=== PATIENT | male | born 1960 | race African-American/Black ===

== ENCOUNTER 2021-07-07 03:49 | Observation (INO) | payer OTHER ==
[2021-07-07] MEDS ORDERED: Ondansetron PF 4 MG/2 ML Vial ONE (04:07)
[2021-07-07 04:57] LABS: ALT (SGPT) 24 U/L (8-55); AST (SGOT) 23 U/L (5-34); Albumin 4.2 g/dL (3.5-5.0); Alkaline Phosphatase 104 U/L (40-110); Anion Gap 14 mmol/L (10-20); BUN (Urea Nitrogen) 13 mg/dL (8.4-25.7); Bilirubin, Total 0.9 mg/dL (0.2-1.2); Calc. Creatinine Clearance 0 mL/min (70-130); Calcium 8.9 mg/dL (7.8-10.44); Carbon Dioxide 23 mmol/L (22-29); Chloride 106 mmol/L (98-107); Globulin 3.1 g/dL (2.4-3.5); Glucose 124 mg/dL (70-105); Hemoglobin 14.2 g/dL (13.5-17.5); Mean Corpuscular HGB CONC 33.3 g/dL (32.0-36.0); Mean Corpuscular Hemoglobin 28.9 pg (27.0-33.0); Mean Corpuscular Volume 86.8 fl (81.2-95.1); Platelet Count 234 10x3/uL (150-450); Potassium 3.3 mmol/L (3.5-5.1); Protein, Total 7.3 g/dL (6.0-8.3); RBC Distribution Width 13.9 % (11.5-14.5); Red Blood Cell (RBC) Count 4.92 10x6/uL (4.32-5.72); Sodium 140 mmol/L (136-145)
[2021-07-07 05:17] LABS: CKMB 1.7 ng/mL (0-6.6)
[2021-07-07 05:27] LABS: MDiff Complete? YES
[2021-07-07 05:29] LABS: Lymphocytes 25 % (21-51); Monocytes 13 % (0-10); Neutrophil 62 % (42-75)
[2021-07-07 05:30] LABS: Platelet Morphology Comment Appears Adequate; RBC Morphology Normal
[2021-07-07 05:32] LABS: SARS-CoV-2 NAA Rapid Test Not Detected (NotDetected)
[2021-07-07] MEDS ORDERED: cefTRIAXone\\ROCEPHIN 1 GM VIAL ONE (05:34)
[2021-07-07] MEDS ORDERED: Azithromycin 500 MG VIAL ONE (05:34)
[2021-07-07] MEDS ORDERED: hydrALAZINE 20 MG/ML VIAL SLOW IVP PRN (06:29)
[2021-07-07] MEDS ORDERED: Furosemide 40 MG/4 ML VIAL SLOW IVP SCH ×2 (06:30→14:00)
[2021-07-07] MEDS ORDERED: cefTRIAXone\\ROCEPHIN 1 GM in Sodium Chloride 0.9% 100 ML IVPB SCH (06:45)
[2021-07-07 07:01] VITALS: BMI 33.5
[2021-07-07 07:05] LABS: Magnesium 1.9 mg/dL (1.6-2.6); Uric Acid 6.4 mg/dL (3.5-7.2)
[2021-07-07 07:08] LABS: Cardiac Risk 6.7 (Less than 4.5); Troponin I 0.018 ng/mL (< 0.028)
[2021-07-07] MEDS: cloNIDine 0.1 MG TAB PO SCH ×2 (08:36→21:23)
[2021-07-07] MEDS: hydrALAZINE 25 MG TAB PO SCH ×3 (08:36→21:26)
[2021-07-07] MEDS: Terazosin HCl 1 MG CAP PO SCH (08:37)
[2021-07-07] MEDS: Apixaban 5 MG TAB PO SCH ×2 (08:37→21:26)
[2021-07-07] MEDS: Aspirin 81 mg Enteric Coated Tablet PO SCH (08:37)
[2021-07-07] MEDS: Lisinopril 20 MG TAB PO SCH (08:37)
[2021-07-07] MEDS: Ubidecarenone 50 MG CAP PO SCH (08:37)
[2021-07-07] MEDS: Potassium Chloride 20 MEQ TAB PO SCH ×3 (08:37→16:30)
[2021-07-07] MEDS: Diltiazem HCl CD 300 mg Capsule PO SCH (08:39)
[2021-07-07] MEDS: Carvedilol 25 MG TAB PO SCH ×2 (08:39→16:30)
[2021-07-07] MEDS: Azelastine 137 MCG/Spray 30 ML NS SCH (08:40)
[2021-07-07 09:58] LABS: Legionella Urinary Ag Negative (Negative); Strep pneumo Urine Ag NEGATIVE (NEGATIVE)
[2021-07-07 11:46] LABS: Troponin I 0.022 ng/mL (< 0.028)
[2021-07-07] MEDS ORDERED: Simvastatin 10 MG TAB PO SCH (21:00)
[2021-07-08 05:43] LABS: #Eosinphils 0.2 10x3/uL (0.0-0.5); #Monocytes 0.5 10x3/uL (0.0-1.1); #Neutrophils 1.3 10x3/uL (1.5-8.4); %Basophils 0.6 % (0.0-2.0); %Eosinophils 5.7 % (0.0-6.0); %Lymphocytes 35.6 % (18.0-47.0); %Monocytes 16.8 % (0.0-10.0)
[2021-07-08 05:44] LABS: Hemoglobin 13.2 g/dL (13.5-17.5); Mean Corpuscular HGB CONC 33.1 g/dL (32.0-36.0); Mean Corpuscular Volume 87.7 fl (81.2-95.1); Mean Platelet Volume 9.9 fl (7.4-10.4); Platelet Count 202 10x3/uL (150-450); RBC Distribution Width 14.2 % (11.5-14.5); Red Blood Cell (RBC) Count 4.55 10x6/uL (4.32-5.72); White Blood Cell (WBC) Count 3.2 10x3/uL (3.5-10.5)
[2021-07-08 05:59] LABS: Anion Gap 12 mmol/L (10-20); BUN (Urea Nitrogen) 14 mg/dL (8.4-25.7); Calc. Creatinine Clearance 95 mL/min (70-130); Calcium 8.6 mg/dL (7.8-10.44); Carbon Dioxide 24 mmol/L (22-29); Chloride 107 mmol/L (98-107); Glucose 104 mg/dL (70-105); Potassium 3.4 mmol/L (3.5-5.1); Sodium 140 mmol/L (136-145)
[2021-07-08] MEDS ORDERED: cefTRIAXone\\ROCEPHIN 2 GM in Sodium Chloride 0.9% 100 ML IVPB SCH (06:00)
[2021-07-08 06:28] LABS: Eosinophils 9 % (0-10); Lymphocytes 33 % (21-51); Monocytes 14 % (0-10); Reactive Lymphocytes 5 % (0-10)
[2021-07-08 06:29] LABS: Platelet Morphology Comment Appears Adequate; RBC Morphology Normal
[2021-07-08] MEDS ORDERED: Azithromycin 500 MG in Sodium Chloride 0.9% 250 ML 250 ML IVPB SCH (06:30)
[2021-07-08] MEDS: Carvedilol 25 MG TAB PO SCH (08:13)
[2021-07-08] MEDS: hydrALAZINE 25 MG TAB PO SCH (08:13)
[2021-07-08] MEDS: Apixaban 5 MG TAB PO SCH (08:13)
[2021-07-08] MEDS: Ubidecarenone 50 MG CAP PO SCH (08:13)
[2021-07-08] MEDS: cloNIDine 0.1 MG TAB PO SCH (08:13)
[2021-07-08] MEDS: Lisinopril 20 MG TAB PO SCH (08:13)
[2021-07-08] MEDS: Aspirin 81 mg Enteric Coated Tablet PO SCH (08:14)
[2021-07-08] MEDS: Azelastine 137 MCG/Spray 30 ML NS SCH (08:14)
[2021-07-08] MEDS: Terazosin HCl 1 MG CAP PO SCH (08:18)
[2021-07-08] MEDS ORDERED: Furosemide 40 MG/4 ML VIAL SLOW IVP SCH (09:00)
[2021-07-08] MEDS: Diltiazem HCl CD 300 mg Capsule PO SCH (09:16)
[2021-07-08 12:25] VITALS: BP 131/80; TEMP 97.6
== END 2021-07-08 13:47 | disposition home or self-care (01) ==
LOC: CSHERS 03:49 → INTOOBSV 06:27 → CSHTELE 06:27
PROVIDERS: ADMIT Family Medicine; ATTEND Internal Medicine
DX: J18.9 Pneumonia, unspecified organism (principal); I13.0 Hypertensive heart and chronic kidney disease with heart failure and stage 1 through stage 4 chronic kidney disease, or unspecified chronic kidney disease; I50.33 Acute on chronic diastolic (congestive) heart failure; N18.2 Chronic kidney disease, stage 2 (mild); I48.0 Paroxysmal atrial fibrillation; E87.6 Hypokalemia; E78.5 Hyperlipidemia, unspecified; K21.9 Gastro-esophageal reflux disease without esophagitis; G47.33 Obstructive sleep apnea (adult) (pediatric); Z79.899 Other long term (current) drug therapy; E66.9 Obesity, unspecified; Z68.32 Body mass index [BMI] 32.0-32.9, adult; Z79.01 Long term (current) use of anticoagulants; Z79.82 Long term (current) use of aspirin; Z20.822 Contact with and (suspected) exposure to COVID-19
CPT/HCPCS: 36415; 71045; 80048; 80053; 80061; 82553; 83605; 83735; 83880; 84443; 84484; 84550; 85025; 87040; 87070; 87205; 87449; 87633; 87899; 93005; 93306; 94760; 96365; 96368; 96375; 96376; 97139; G0378; J0456; J0696; J1940; J2405; J3490; J7050; U0002

== ENCOUNTER 2021-09-24 16:14 | Emergency (ER) | payer OTHER ==
[2021-09-24] MEDS ORDERED: methylPREDNISolone Sod Succ/PF 125 MG/2 ML VIAL ONE (17:04)
[2021-09-24 17:27] LABS: #Eosinphils 0.1 10x3/uL (0.0-0.5); #Monocytes 0.7 10x3/uL (0.0-1.1); #Neutrophils 3.8 10x3/uL (1.5-8.4); %Basophils 0.5 % (0.0-2.0); %Eosinophils 2.2 % (0.0-6.0); %Lymphocytes 21.2 % (18.0-47.0); %Monocytes 11.5 % (0.0-10.0); %Neutrophils 64.4 % (40.0-75.0); Hemoglobin 13.9 g/dL (13.5-17.5); Mean Corpuscular HGB CONC 33.3 g/dL (32.0-36.0); Mean Corpuscular Hemoglobin 29.1 pg (27.0-33.0); Mean Corpuscular Volume 87.2 fl (81.2-95.1); Mean Platelet Volume 9.9 fl (7.4-10.4); Platelet Count 248 10x3/uL (150-450); RBC Distribution Width 13.8 % (11.5-14.5); Red Blood Cell (RBC) Count 4.78 10x6/uL (4.32-5.72); White Blood Cell (WBC) Count 5.8 10x3/uL (3.5-10.5)
[2021-09-24 17:39] LABS: ALT (SGPT) 19 U/L (8-55); AST (SGOT) 18 U/L (5-34); Alkaline Phosphatase 92 U/L (40-110); Anion Gap 12 mmol/L (10-20); BUN (Urea Nitrogen) 12 mg/dL (8.4-25.7); Calc. Creatinine Clearance 0 mL/min (70-130); Calcium 8.8 mg/dL (7.8-10.44); Carbon Dioxide 28 mmol/L (22-29); Chloride 105 mmol/L (98-107); Globulin 3.1 g/dL (2.4-3.5); Glucose 96 mg/dL (70-105); Magnesium 1.9 mg/dL (1.6-2.6); Potassium 3.5 mmol/L (3.5-5.1); Protein, Total 7.1 g/dL (6.0-8.3); Sodium 141 mmol/L (136-145)
[2021-09-24] MEDS ORDERED: Ondansetron PF 4 MG/2 ML Vial ONE (18:10)
[2021-09-24] MEDS ORDERED: Doxycycline 100 MG CAP PO SCH (18:30)
== END 2021-09-24 18:35 | disposition home or self-care (01) ==
LOC: CSHERS 16:14
DX: J18.9 Pneumonia, unspecified organism (principal); I48.91 Unspecified atrial fibrillation; E78.5 Hyperlipidemia, unspecified; I10 Essential (primary) hypertension; E66.9 Obesity, unspecified
CPT/HCPCS: 71045; 80053; 83735; 83880; 84484; 85025; 87804; 93005; 93010; 96374; 96375; J2405; J2930; J7620

== ENCOUNTER 2021-12-11 06:42 | Observation (INO) | payer OTHER ==
[2021-12-11 07:24] LABS: #Eosinphils 0.3 10x3/uL (0.0-0.5); #Monocytes 0.6 10x3/uL (0.0-1.1); %Basophils 0.4 % (0.0-2.0); %Eosinophils 5.3 % (0.0-6.0); %Lymphocytes 29.3 % (18.0-47.0); %Monocytes 10.9 % (0.0-10.0); %Neutrophils 53.6 % (40.0-75.0); Hemoglobin 12.7 g/dL (13.5-17.5); Mean Corpuscular HGB CONC 34.3 g/dL (32.0-36.0); Mean Corpuscular Hemoglobin 28.9 pg (27.0-33.0); Mean Corpuscular Volume 84.3 fl (81.2-95.1); Platelet Count 229 10x3/uL (150-450); RBC Distribution Width 13.8 % (11.5-14.5); Red Blood Cell (RBC) Count 4.39 10x6/uL (4.32-5.72); White Blood Cell (WBC) Count 5.5 10x3/uL (3.5-10.5)
[2021-12-11 07:38] LABS: ALT (SGPT) 40 U/L (8-55); AST (SGOT) 24 U/L (5-34); Albumin 3.3 g/dL (3.5-5.0); Alkaline Phosphatase 71 U/L (40-110); Anion Gap 14 mmol/L (10-20); BUN (Urea Nitrogen) 21 mg/dL (8.4-25.7); Bilirubin, Total 0.6 mg/dL (0.2-1.2); Calc. Creatinine Clearance 0 mL/min (70-130); Calcium 8.8 mg/dL (7.8-10.44); Carbon Dioxide 25 mmol/L (22-29); Chloride 106 mmol/L (98-107); Globulin 2.9 g/dL (2.4-3.5); Glucose 90 mg/dL (70-105); Potassium 3.7 mmol/L (3.5-5.1); Protein, Total 6.2 g/dL (6.0-8.3); Sodium 141 mmol/L (136-145)
[2021-12-11 08:00] LABS: INR-International Normal Ratio 1.1; PTT 28.8 sec (22.0-33.0); Prothrombin Time 12.1 sec (9.5-12.1)
[2021-12-11] MEDS ORDERED: Aspirin Chewable 81 MG TAB ONE (08:15)
[2021-12-11] MEDS ORDERED: Enoxaparin Sodium 100 MG/ML SYRINGE ONE (08:16)
[2021-12-11] MEDS ORDERED: Nitroglycerin 2% Ointment 1 INCH/1 GM Packet ONE (08:17)
[2021-12-11] MEDS ORDERED: Furosemide 40 MG/4 ML VIAL ONE (08:17)
[2021-12-11 08:25] LABS: CKMB 1.8 ng/mL (0-6.6)
[2021-12-11 09:38] LABS: SARS-CoV-2 NAA Rapid Test Not Detected (NotDetected)
[2021-12-11 11:07] LABS: Troponin I 0.982 ng/mL (< 0.028)
[2021-12-11] MEDS ORDERED: Ondansetron ODT 4 MG TAB PO PRN (12:15)
[2021-12-11] MEDS ORDERED: Acetaminophen 325 MG TAB PO PRN (12:15)
[2021-12-11] MEDS ORDERED: Nitroglycerin 0.4 MG TAB (25 Tab Bottle) SL PRN (12:16)
[2021-12-11 12:38] LABS: Magnesium 1.8 mg/dL (1.6-2.6)
[2021-12-11] MEDS ORDERED: Ipratropium Bromide 0.06% Nasal Inhaler 15ml EA NARE SCH (13:00)
[2021-12-11] MEDS ORDERED: Iopamidol 370 76% 100 ML VIAL ONE (14:39)
[2021-12-11] MEDS: hydrALAZINE 25 MG TAB PO SCH ×2 (14:59→19:55)
[2021-12-11] MEDS: Nitroglycerin 2% Ointment 1 INCH/1 GM Packet TOP SCH ×2 (14:59→21:21)
[2021-12-11] MEDS: cloNIDine 0.1 MG TAB PO SCH ×2 (15:00→19:56)
[2021-12-11] MEDS: Carvedilol 25 MG TAB PO SCH (17:10)
[2021-12-11] MEDS ORDERED: hydrALAZINE 20 MG/ML VIAL SLOW IVP PRN (17:14)
[2021-12-11] MEDS ORDERED: Lisinopril 20 MG TAB PO SCH (17:15)
[2021-12-11] MEDS: hydrALAZINE 20 MG/ML VIAL SLOW IVP PRN ×2 (18:29→23:07)
[2021-12-11] MEDS: Colchicine 0.6 MG TAB PO SCH (19:57)
[2021-12-11] MEDS: Apixaban 5 MG TAB PO SCH (19:58)
[2021-12-11] MEDS ORDERED: Furosemide 40 MG/4 ML VIAL SLOW IVP SCH (20:00)
[2021-12-11] MEDS ORDERED: Enoxaparin Sodium 80 MG/0.8 ML SYRINGE SC SCH (21:00)
[2021-12-11] MEDS ORDERED: Atorvastatin Calcium 10 MG TAB PO SCH (21:00)
[2021-12-12 04:20] VITALS: BMI 35.6
[2021-12-12 04:35] LABS: #Eosinphils 0.2 10x3/uL (0.0-0.5); #Monocytes 0.5 10x3/uL (0.0-1.1); #Neutrophils 2.4 10x3/uL (1.5-8.4); %Basophils 0.6 % (0.0-2.0); %Eosinophils 3.2 % (0.0-6.0); %Lymphocytes 33.3 % (18.0-47.0); %Monocytes 11.2 % (0.0-10.0); %Neutrophils 51.3 % (40.0-75.0); Hemoglobin 12.5 g/dL (13.5-17.5); Mean Corpuscular HGB CONC 33.4 g/dL (32.0-36.0); Mean Corpuscular Hemoglobin 28.7 pg (27.0-33.0); Mean Corpuscular Volume 85.8 fl (81.2-95.1); Mean Platelet Volume 10.4 fl (7.4-10.4); Platelet Count 269 10x3/uL (150-450); RBC Distribution Width 13.8 % (11.5-14.5); Red Blood Cell (RBC) Count 4.36 10x6/uL (4.32-5.72); White Blood Cell (WBC) Count 4.8 10x3/uL (3.5-10.5)
[2021-12-12 04:53] LABS: Anion Gap 16 mmol/L (10-20); BUN (Urea Nitrogen) 20 mg/dL (8.4-25.7); Calc. Creatinine Clearance 81 mL/min (70-130); Calcium 8.6 mg/dL (7.8-10.44); Carbon Dioxide 28 mmol/L (22-29); Chloride 101 mmol/L (98-107); Glucose 65 mg/dL (70-105); Magnesium 1.8 mg/dL (1.6-2.6); Potassium 3.5 mmol/L (3.5-5.1); Sodium 141 mmol/L (136-145)
[2021-12-12] MEDS: Furosemide 40 MG/4 ML VIAL SLOW IVP SCH ×2 (05:00→14:25)
[2021-12-12] MEDS: Nitroglycerin 2% Ointment 1 INCH/1 GM Packet TOP SCH ×2 (05:00→14:24)
[2021-12-12] MEDS ORDERED: Potassium Chloride 10 MEQ TAB PO SCH (08:00)
[2021-12-12] MEDS: Apixaban 5 MG TAB PO SCH (08:34)
[2021-12-12] MEDS: Carvedilol 25 MG TAB PO SCH ×2 (08:36→16:00)
[2021-12-12] MEDS: cloNIDine 0.1 MG TAB PO SCH ×2 (08:36→15:57)
[2021-12-12] MEDS: Colchicine 0.6 MG TAB PO SCH (08:37)
[2021-12-12] MEDS: hydrALAZINE 25 MG TAB PO SCH ×2 (08:38→15:58)
[2021-12-12] MEDS ORDERED: Lisinopril 20 MG TAB PO SCH (09:00)
[2021-12-12] MEDS ORDERED: Aspirin 81 mg Enteric Coated Tablet PO SCH (09:00)
[2021-12-12] MEDS ORDERED: Amiodarone 200 MG TAB PO SCH (09:00)
[2021-12-12] MEDS ORDERED: Losartan 25 MG TAB PO SCH (09:00)
[2021-12-12] MEDS ORDERED: Loratadine 10 MG TAB PO SCH (09:00)
[2021-12-12 16:40] VITALS: BP 135/92; TEMP 97.4
== END 2021-12-12 20:00 | disposition home or self-care (01) ==
LOC: CSHERS 06:42 → INTOOBSV 09:54 → CSHTELE 09:54
PROVIDERS: ADMIT Internal Medicine; ATTEND Internal Medicine
DX: I13.0 Hypertensive heart and chronic kidney disease with heart failure and stage 1 through stage 4 chronic kidney disease, or unspecified chronic kidney disease (principal); I48.4 Atypical atrial flutter; I48.19 Other persistent atrial fibrillation; I50.33 Acute on chronic diastolic (congestive) heart failure; N18.2 Chronic kidney disease, stage 2 (mild); R77.8 Other specified abnormalities of plasma proteins; K21.9 Gastro-esophageal reflux disease without esophagitis; Z79.899 Other long term (current) drug therapy; Z79.01 Long term (current) use of anticoagulants; Z79.82 Long term (current) use of aspirin; E78.5 Hyperlipidemia, unspecified; G47.33 Obstructive sleep apnea (adult) (pediatric); E66.9 Obesity, unspecified; J90 Pleural effusion, not elsewhere classified; Z20.822 Contact with and (suspected) exposure to COVID-19
CPT/HCPCS: 36415; 71045; 71275; 80048; 80053; 82550; 82553; 83605; 83735; 83880; 84443; 84484; 85025; 85610; 85730; 93005; 93306; 94760; 96372; 96374; 96375; 96376; G0378; J0360; J1650; J1940; Q0162; Q9967; U0002

== ENCOUNTER 2021-12-16 00:43 | Observation (INO) | payer OTHER ==
[2021-12-16 01:30] LABS: #Eosinphils 0.1 10x3/uL (0.0-0.5); #Monocytes 0.5 10x3/uL (0.0-1.1); %Basophils 0.9 % (0.0-2.0); %Eosinophils 2.9 % (0.0-6.0); %Lymphocytes 40.8 % (18.0-47.0); %Neutrophils 44.2 % (40.0-75.0); Hemoglobin 13.7 g/dL (13.5-17.5); Mean Corpuscular HGB CONC 34.3 g/dL (32.0-36.0); Mean Corpuscular Hemoglobin 29.1 pg (27.0-33.0); Mean Corpuscular Volume 85.1 fl (81.2-95.1); Mean Platelet Volume 9.9 fl (7.4-10.4); Platelet Count 319 10x3/uL (150-450); RBC Distribution Width 14.1 % (11.5-14.5); White Blood Cell (WBC) Count 4.4 10x3/uL (3.5-10.5)
[2021-12-16] MEDS ORDERED: Aspirin Chewable 81 MG TAB ONE (01:32)
[2021-12-16 01:45] LABS: ALT (SGPT) 38 U/L (8-55); AST (SGOT) 23 U/L (5-34); Albumin 3.8 g/dL (3.5-5.0); Alkaline Phosphatase 76 U/L (40-110); Anion Gap 15 mmol/L (10-20); BUN (Urea Nitrogen) 17 mg/dL (8.4-25.7); Bilirubin, Total 0.4 mg/dL (0.2-1.2); Calc. Creatinine Clearance 0 mL/min (70-130); Carbon Dioxide 30 mmol/L (22-29); Chloride 101 mmol/L (98-107); Globulin 2.7 g/dL (2.4-3.5); Glucose 109 mg/dL (70-105); Potassium 3.5 mmol/L (3.5-5.1); Protein, Total 6.5 g/dL (6.0-8.3); Sodium 142 mmol/L (136-145)
[2021-12-16 02:05] LABS: CKMB 1.1 ng/mL (0-6.6)
[2021-12-16] MEDS ORDERED: Furosemide 40 MG/4 ML VIAL ONE (02:18)
[2021-12-16 02:54] LABS: INR-International Normal Ratio 1.2; PTT 28.9 sec (22.0-33.0); Prothrombin Time 12.6 sec (9.5-12.1)
[2021-12-16 03:31] VITALS: BMI 32.1
[2021-12-16] MEDS ORDERED: Potassium Chloride 20 MEQ TAB PO SCH (03:45)
[2021-12-16] MEDS ORDERED: ALPRAZolam 0.25 MG TAB PO PRN (03:51)
[2021-12-16 05:09] LABS: Magnesium 1.9 mg/dL (1.6-2.6)
[2021-12-16] MEDS: Furosemide 40 MG/4 ML VIAL SLOW IVP SCH ×2 (06:07→15:41)
[2021-12-16] MEDS ORDERED: Magnesium 2 GM/50 ML(in water) 2 GM in Premix Bag 1 BAG IVPB SCH (07:45)
[2021-12-16] MEDS: hydrALAZINE 25 MG TAB PO SCH ×3 (08:25→21:27)
[2021-12-16] MEDS: Colchicine 0.6 MG TAB PO SCH ×2 (08:26→21:27)
[2021-12-16] MEDS: Ubidecarenone 50 MG CAP PO SCH (08:26)
[2021-12-16] MEDS: cloNIDine 0.1 MG TAB PO SCH ×2 (08:26→21:26)
[2021-12-16] MEDS: Potassium Chloride 10 MEQ TAB PO SCH (08:26)
[2021-12-16] MEDS: Aspirin 81 mg Enteric Coated Tablet PO SCH (08:26)
[2021-12-16] MEDS: Apixaban 5 MG TAB PO SCH ×2 (08:27→21:27)
[2021-12-16] MEDS: Amiodarone 200 MG TAB PO SCH (08:27)
[2021-12-16] MEDS: Fluticasone Propionate Nasal Spray 16 gm Bottle NASAL SCH (08:28)
[2021-12-16] MEDS: Carvedilol 25 MG TAB PO SCH ×2 (08:28→17:32)
[2021-12-16] MEDS ORDERED: Losartan 25 MG TAB PO SCH (09:00)
[2021-12-16] MEDS: Azelastine 137 MCG/Spray 30 ML NS SCH (11:14)
[2021-12-16] MEDS ORDERED: Acetaminophen 325 MG TAB PO PRN (15:48)
[2021-12-16] MEDS ORDERED: Atorvastatin Calcium 10 MG TAB PO SCH (21:00)
[2021-12-17 04:58] LABS: #Eosinphils 0.1 10x3/uL (0.0-0.5); #Monocytes 0.5 10x3/uL (0.0-1.1); #Neutrophils 2.1 10x3/uL (1.5-8.4); %Basophils 0.7 % (0.0-2.0); %Eosinophils 3.2 % (0.0-6.0); %Lymphocytes 33.7 % (18.0-47.0); %Monocytes 11.5 % (0.0-10.0); %Neutrophils 50.7 % (40.0-75.0); Hemoglobin 13.4 g/dL (13.5-17.5); Mean Corpuscular HGB CONC 33.6 g/dL (32.0-36.0); Mean Corpuscular Hemoglobin 29.1 pg (27.0-33.0); Mean Corpuscular Volume 86.6 fl (81.2-95.1); Mean Platelet Volume 9.7 fl (7.4-10.4); Platelet Count 297 10x3/uL (150-450); RBC Distribution Width 14.2 % (11.5-14.5); Red Blood Cell (RBC) Count 4.61 10x6/uL (4.32-5.72); White Blood Cell (WBC) Count 4.1 10x3/uL (3.5-10.5)
[2021-12-17 05:12] LABS: Anion Gap 15 mmol/L (10-20); BUN (Urea Nitrogen) 15 mg/dL (8.4-25.7); Calc. Creatinine Clearance 69 mL/min (70-130); Calcium 9.2 mg/dL (7.8-10.44); Carbon Dioxide 27 mmol/L (22-29); Cardiac Risk 6.4 (Less than 4.5); Chloride 101 mmol/L (98-107); Cholesterol 206 mg/dl (< 200 Desired); Glucose 99 mg/dL (70-105); HDL Cholesterol 32 mg/dL (>60 Neg Risk); LDL Cholesterol, Calculated 150 mg/dL; Magnesium 2.1 mg/dL (1.6-2.6); Potassium 3.1 mmol/L (3.5-5.1); Sodium 140 mmol/L (136-145); Triglycerides 120 mg/dL (Less than 150)
[2021-12-17] MEDS: Furosemide 40 MG/4 ML VIAL SLOW IVP SCH ×2 (05:58→13:56)
[2021-12-17] MEDS: Ubidecarenone 50 MG CAP PO SCH (08:45)
[2021-12-17] MEDS: Potassium Chloride 10 MEQ TAB PO SCH (08:45)
[2021-12-17] MEDS: cloNIDine 0.1 MG TAB PO SCH (08:46)
[2021-12-17] MEDS: Aspirin 81 mg Enteric Coated Tablet PO SCH (08:46)
[2021-12-17] MEDS: Colchicine 0.6 MG TAB PO SCH (08:46)
[2021-12-17] MEDS: hydrALAZINE 25 MG TAB PO SCH ×2 (08:48→13:56)
[2021-12-17] MEDS: Apixaban 5 MG TAB PO SCH (08:48)
[2021-12-17] MEDS: Carvedilol 25 MG TAB PO SCH (08:48)
[2021-12-17] MEDS: Amiodarone 200 MG TAB PO SCH (08:48)
[2021-12-17] MEDS: Azelastine 137 MCG/Spray 30 ML NS SCH (09:00)
[2021-12-17] MEDS: Fluticasone Propionate Nasal Spray 16 gm Bottle NASAL SCH (09:00)
[2021-12-17] MEDS ORDERED: hydrALAZINE 20 MG/ML VIAL SLOW IVP SCH (11:30)
[2021-12-17 12:06] VITALS: BP 138/95; TEMP 97.7
[2021-12-17] MEDS ORDERED: Losartan 25 MG TAB PO SCH (21:00)
== END 2021-12-17 15:30 | disposition home or self-care (01) ==
LOC: CSHERS 00:43 → CSHTELE 03:21
PROVIDERS: ADMIT Family Medicine; ATTEND Family Medicine
DX: I13.0 Hypertensive heart and chronic kidney disease with heart failure and stage 1 through stage 4 chronic kidney disease, or unspecified chronic kidney disease (principal); I50.33 Acute on chronic diastolic (congestive) heart failure; N18.31 Chronic kidney disease, stage 3a; I16.0 Hypertensive urgency; E87.6 Hypokalemia; I48.91 Unspecified atrial fibrillation; I48.92 Unspecified atrial flutter; K21.9 Gastro-esophageal reflux disease without esophagitis; E78.5 Hyperlipidemia, unspecified; G47.33 Obstructive sleep apnea (adult) (pediatric); R77.8 Other specified abnormalities of plasma proteins; Z98.890 Other specified postprocedural states; Z79.01 Long term (current) use of anticoagulants; Z79.02 Long term (current) use of antithrombotics/antiplatelets; Z79.899 Other long term (current) drug therapy; Z88.8 Allergy status to other drugs, medicaments and biological substances
CPT/HCPCS: 36415; 71045; 80048; 80053; 80061; 82553; 83735; 83880; 84484; 84550; 85025; 85610; 85730; 93005; 94660; 94760; 96374; 96375; 96376; 97139; G0378; J1940; J3475

== ENCOUNTER 2021-12-20 06:10 | Emergency (ER) | payer OTHER ==
[2021-12-20] MEDS ORDERED: cloNIDine 0.1 MG TAB ONE (07:10)
[2021-12-20] MEDS ORDERED: Nitroglycerin 2% Ointment 1 INCH/1 GM Packet ONE (07:10)
[2021-12-20] MEDS ORDERED: Aspirin Chewable 81 MG TAB ONE (07:10)
[2021-12-20] MEDS ORDERED: Furosemide 40 MG/4 ML VIAL ONE (07:10)
[2021-12-20 07:12] LABS: #Basophils 0.1 10x3/uL (0.0-0.2); #Eosinphils 0.1 10x3/uL (0.0-0.5); #Monocytes 0.5 10x3/uL (0.0-1.1); #Neutrophils 1.5 10x3/uL (1.5-8.4); %Basophils 1.6 % (0.0-2.0); %Eosinophils 3.5 % (0.0-6.0); %Lymphocytes 40.8 % (18.0-47.0); %Monocytes 13.9 % (0.0-10.0); %Neutrophils 40.2 % (40.0-75.0); Hemoglobin 14.9 g/dL (13.5-17.5); Mean Corpuscular HGB CONC 34.3 g/dL (32.0-36.0); Mean Corpuscular Hemoglobin 28.8 pg (27.0-33.0); Mean Platelet Volume 9.8 fl (7.4-10.4); Platelet Count 336 10x3/uL (150-450); RBC Distribution Width 14.5 % (11.5-14.5); Red Blood Cell (RBC) Count 5.18 10x6/uL (4.32-5.72); White Blood Cell (WBC) Count 3.8 10x3/uL (3.5-10.5)
[2021-12-20 07:17] LABS: ALT (SGPT) 20 U/L (8-55); AST (SGOT) 13 U/L (5-34); Albumin 4.2 g/dL (3.5-5.0); Alkaline Phosphatase 82 U/L (40-110); Anion Gap 16 mmol/L (10-20); BUN (Urea Nitrogen) 17 mg/dL (8.4-25.7); Bilirubin, Total 0.9 mg/dL (0.2-1.2); Calc. Creatinine Clearance 0 mL/min (70-130); Calcium 9.5 mg/dL (7.8-10.44); Carbon Dioxide 27 mmol/L (22-29); Chloride 100 mmol/L (98-107); Globulin 3.1 g/dL (2.4-3.5); Glucose 108 mg/dL (70-105); Potassium 3.2 mmol/L (3.5-5.1); Protein, Total 7.3 g/dL (6.0-8.3); Sodium 140 mmol/L (136-145)
[2021-12-20 07:40] LABS: CKMB 1.1 ng/mL (0-6.6)
[2021-12-20 11:42] LABS: Troponin I 0.439 ng/mL (< 0.028)
== END 2021-12-20 12:28 | disposition home or self-care (01) ==
LOC: CSHERS 06:10
DX: R07.89 Other chest pain (principal); I48.91 Unspecified atrial fibrillation; E78.5 Hyperlipidemia, unspecified; I10 Essential (primary) hypertension; E66.9 Obesity, unspecified
CPT/HCPCS: 36415; 71045; 80053; 82553; 83880; 84484; 85025; 93005; 96374; J1940

== ENCOUNTER 2021-12-24 23:14 | Inpatient (IN) | payer OTHER ==
[2021-12-25] MEDS ORDERED: Sodium Chloride 0.9% 1,000 ML IV SCH (00:30)
[2021-12-25 00:43] VITALS: BMI 31.3
[2021-12-25] MEDS ORDERED: Potassium Chloride 20 MEQ TAB PO SCH ×2 (03:00→03:15)
[2021-12-25] MEDS ORDERED: Ipratropium Bromide 0.06% Nasal Inhaler 15ml EA NARE PRN (03:03)
[2021-12-25 04:20] LABS: Hemoglobin 14.6 g/dL (13.5-17.5); Mean Corpuscular HGB CONC 33.9 g/dL (32.0-36.0); Mean Corpuscular Hemoglobin 29.1 pg (27.0-33.0); Mean Corpuscular Volume 85.9 fl (81.2-95.1); Mean Platelet Volume 10.4 fl (7.4-10.4); Platelet Count 246 10x3/uL (150-450); RBC Distribution Width 14.3 % (11.5-14.5); Red Blood Cell (RBC) Count 5.02 10x6/uL (4.32-5.72); White Blood Cell (WBC) Count 3.4 10x3/uL (3.5-10.5)
[2021-12-25 04:49] LABS: Anion Gap 14 mmol/L (10-20); BUN (Urea Nitrogen) 14 mg/dL (8.4-25.7); Calc. Creatinine Clearance 71 mL/min (70-130); Calcium 9.2 mg/dL (7.8-10.44); Carbon Dioxide 29 mmol/L (22-29); Chloride 103 mmol/L (98-107); Glucose 90 mg/dL (70-105); Sodium 143 mmol/L (136-145)
[2021-12-25 04:53] LABS: Troponin I 0.337 ng/mL (< 0.028)
[2021-12-25 04:55] LABS: MDiff Complete? YES
[2021-12-25 04:59] LABS: Eosinophils 4 % (0-10); Lymphocytes 39 % (21-51); Monocytes 14 % (0-10); Neutrophil 41 % (42-75); Reactive Lymphocytes 1 % (0-10)
[2021-12-25 05:01] LABS: Platelet Morphology Comment Appears Adequate; RBC Morphology Normal
[2021-12-25] MEDS ORDERED: hydrALAZINE 20 MG/ML VIAL SLOW IVP PRN (07:04)
[2021-12-25] MEDS ORDERED: Magnesium 2 GM/50 ML(in water) 2 GM in Premix Bag 1 BAG IVPB SCH (07:15)
[2021-12-25 08:07] LABS: INR-International Normal Ratio 1.2; PTT 29.1 sec (22.0-33.0); Prothrombin Time 12.4 sec (9.5-12.1)
[2021-12-25] MEDS: Ubidecarenone 50 MG CAP PO SCH (08:20)
[2021-12-25] MEDS: hydrALAZINE 25 MG TAB PO SCH ×2 (08:20→16:04)
[2021-12-25] MEDS: Potassium Chloride 10 MEQ TAB PO SCH (08:20)
[2021-12-25] MEDS: cloNIDine 0.1 MG TAB PO SCH ×2 (08:21→20:17)
[2021-12-25] MEDS: Atorvastatin Calcium 10 MG TAB PO SCH (08:21)
[2021-12-25] MEDS: Colchicine 0.6 MG TAB PO SCH ×2 (08:21→20:16)
[2021-12-25] MEDS: ALPRAZolam 0.25 MG TAB PO SCH (08:22)
[2021-12-25] MEDS: Aspirin 81 mg Enteric Coated Tablet PO SCH (08:22)
[2021-12-25] MEDS: Furosemide 40 MG TAB PO SCH (08:22)
[2021-12-25] MEDS ORDERED: DILTIAZEM HCL 420 MG PO SCH (09:00)
[2021-12-25] MEDS ORDERED: Losartan 25 MG TAB PO SCH (09:00)
[2021-12-25] MEDS ORDERED: Apixaban 5 MG TAB PO SCH ×2 (09:00→21:45)
[2021-12-25] MEDS: Isosorbide Dinitrate 20 MG TAB PO SCH ×3 (09:05→20:15)
[2021-12-25] MEDS: Azelastine 137 MCG/Spray 30 ML NS SCH (09:07)
[2021-12-25] MEDS: Fluticasone Propionate Nasal Spray 16 gm Bottle NASAL SCH (09:07)
[2021-12-25 13:08] LABS: Hemoglobin A1c 5.8 % (4.0-6.0)
[2021-12-25] MEDS: Carvedilol 25 MG TAB PO SCH (16:05)
[2021-12-26] MEDS: hydrALAZINE 25 MG TAB PO SCH ×4 (00:21→21:07)
[2021-12-26 05:33] LABS: ALT (SGPT) 15 U/L (8-55); AST (SGOT) 12 U/L (5-34); Albumin 3.5 g/dL (3.5-5.0); Alkaline Phosphatase 70 U/L (40-110); Anion Gap 13 mmol/L (10-20); BUN (Urea Nitrogen) 16 mg/dL (8.4-25.7); Bilirubin, Direct 0.2 mg/dL (0.1-0.3); Bilirubin, Total 0.7 mg/dL (0.2-1.2); Calc. Creatinine Clearance 64 mL/min (70-130); Calcium 9.2 mg/dL (7.8-10.44); Carbon Dioxide 27 mmol/L (22-29); Cardiac Risk 5.8 (Less than 4.5); Chloride 103 mmol/L (98-107); Cholesterol 187 mg/dl (< 200 Desired); Glucose 110 mg/dL (70-105); HDL Cholesterol 32 mg/dL (>60 Neg Risk); LDL Cholesterol, Calculated 134 mg/dL; Magnesium 2.3 mg/dL (1.6-2.6); Potassium 3.2 mmol/L (3.5-5.1); Protein, Total 6.3 g/dL (6.0-8.3); Sodium 140 mmol/L (136-145); Triglycerides 106 mg/dL (Less than 150)
[2021-12-26 05:55] LABS: #Basophils 0.1 10x3/uL (0.0-0.2); #Eosinphils 0.1 10x3/uL (0.0-0.5); #Monocytes 0.5 10x3/uL (0.0-1.1); #Neutrophils 1.1 10x3/uL (1.5-8.4); %Basophils 1.4 % (0.0-2.0); %Eosinophils 3.5 % (0.0-6.0); %Lymphocytes 49.9 % (18.0-47.0); %Monocytes 14.2 % (0.0-10.0); %Neutrophils 30.7 % (40.0-75.0); Hemoglobin 13.6 g/dL (13.5-17.5); Mean Corpuscular HGB CONC 32.9 g/dL (32.0-36.0); Mean Corpuscular Hemoglobin 29.1 pg (27.0-33.0); Mean Corpuscular Volume 88.4 fl (81.2-95.1); Mean Platelet Volume 10.8 fl (7.4-10.4); Platelet Count 241 10x3/uL (150-450); RBC Distribution Width 14.4 % (11.5-14.5); Red Blood Cell (RBC) Count 4.67 10x6/uL (4.32-5.72); White Blood Cell (WBC) Count 3.5 10x3/uL (3.5-10.5)
[2021-12-26] MEDS: Ubidecarenone 50 MG CAP PO SCH (09:19)
[2021-12-26] MEDS: cloNIDine 0.1 MG TAB PO SCH ×2 (09:19→21:07)
[2021-12-26] MEDS: Aspirin 81 mg Enteric Coated Tablet PO SCH (09:19)
[2021-12-26] MEDS: Colchicine 0.6 MG TAB PO SCH ×2 (09:20→21:05)
[2021-12-26] MEDS: ALPRAZolam 0.25 MG TAB PO SCH (09:20)
[2021-12-26] MEDS: Atorvastatin Calcium 10 MG TAB PO SCH (09:21)
[2021-12-26] MEDS: Carvedilol 25 MG TAB PO SCH ×2 (09:21→16:24)
[2021-12-26] MEDS: Apixaban 5 MG TAB PO SCH ×2 (09:21→21:05)
[2021-12-26] MEDS: Lisinopril 20 MG TAB PO SCH (10:08)
[2021-12-26] MEDS: Furosemide 40 MG TAB PO SCH (10:09)
[2021-12-26] MEDS: Potassium Chloride 10 MEQ TAB PO SCH (10:10)
[2021-12-26] MEDS: Isosorbide Dinitrate 20 MG TAB PO SCH ×3 (10:10→21:08)
[2021-12-26] MEDS: Azelastine 137 MCG/Spray 30 ML NS SCH (12:04)
[2021-12-26] MEDS: Fluticasone Propionate Nasal Spray 16 gm Bottle NASAL SCH (12:27)
[2021-12-27 05:02] LABS: Anion Gap 13 mmol/L (10-20); BUN (Urea Nitrogen) 17 mg/dL (8.4-25.7); Calc. Creatinine Clearance 66 mL/min (70-130); Calcium 8.8 mg/dL (7.8-10.44); Carbon Dioxide 25 mmol/L (22-29); Chloride 105 mmol/L (98-107); Glucose 98 mg/dL (70-105); Potassium 3.3 mmol/L (3.5-5.1); Sodium 140 mmol/L (136-145)
[2021-12-27 05:15] LABS: Hemoglobin 12.6 g/dL (13.5-17.5); Mean Corpuscular HGB CONC 32.5 g/dL (32.0-36.0); Mean Corpuscular Hemoglobin 28.9 pg (27.0-33.0); Mean Platelet Volume 10.8 fl (7.4-10.4); Platelet Count 228 10x3/uL (150-450); RBC Distribution Width 14.3 % (11.5-14.5); Red Blood Cell (RBC) Count 4.36 10x6/uL (4.32-5.72); White Blood Cell (WBC) Count 3.8 10x3/uL (3.5-10.5)
[2021-12-27 05:58] LABS: MDiff Complete? YES; Platelet Morphology Comment Appears Adequate; RBC Morphology Normal
[2021-12-27 06:04] LABS: Eosinophils 3 % (0-10); Lymphocytes 54 % (21-51); Monocytes 15 % (0-10); Neutrophil 27 % (42-75)
[2021-12-27] MEDS: cloNIDine 0.1 MG TAB PO SCH ×2 (07:04→20:38)
[2021-12-27] MEDS: Lisinopril 20 MG TAB PO SCH (07:05)
[2021-12-27] MEDS ORDERED: Magnesium 2 GM/50 ML(in water) 2 GM in Premix Bag 1 BAG IVPB SCH ×2 (09:00→14:00)
[2021-12-27] MEDS ORDERED: Potassium Chloride 20 MEQ TAB PO SCH ×2 (09:00→14:00)
[2021-12-27] MEDS: Isosorbide Dinitrate 20 MG TAB PO SCH ×3 (09:52→20:37)
[2021-12-27] MEDS: Ubidecarenone 50 MG CAP PO SCH (09:53)
[2021-12-27] MEDS: Atorvastatin Calcium 10 MG TAB PO SCH (09:53)
[2021-12-27] MEDS: Colchicine 0.6 MG TAB PO SCH ×2 (09:53→20:38)
[2021-12-27] MEDS: hydrALAZINE 25 MG TAB PO SCH ×3 (09:53→20:38)
[2021-12-27] MEDS: Carvedilol 25 MG TAB PO SCH ×2 (09:54→16:17)
[2021-12-27] MEDS: Apixaban 5 MG TAB PO SCH ×2 (09:54→20:37)
[2021-12-27] MEDS: Potassium Chloride 10 MEQ TAB PO SCH (09:54)
[2021-12-27] MEDS: Fluticasone Propionate Nasal Spray 16 gm Bottle NASAL SCH (09:54)
[2021-12-27] MEDS: Aspirin 81 mg Enteric Coated Tablet PO SCH (09:54)
[2021-12-27] MEDS: Furosemide 40 MG TAB PO SCH (09:54)
[2021-12-27] MEDS: Azelastine 137 MCG/Spray 30 ML NS SCH (09:55)
[2021-12-27] MEDS: ALPRAZolam 0.25 MG TAB PO SCH (09:57)
[2021-12-27] MEDS ORDERED: Simethicone Chewable 80 MG TAB PO PRN (15:32)
[2021-12-28 04:00] LABS: Anion Gap 15 mmol/L (10-20); BUN (Urea Nitrogen) 14 mg/dL (8.4-25.7); Calc. Creatinine Clearance 71 mL/min (70-130); Calcium 8.7 mg/dL (7.8-10.44); Carbon Dioxide 25 mmol/L (22-29); Chloride 106 mmol/L (98-107); Glucose 100 mg/dL (70-105); Magnesium 2.2 mg/dL (1.6-2.6); Potassium 3.5 mmol/L (3.5-5.1); Sodium 142 mmol/L (136-145)
[2021-12-28 04:06] LABS: #Eosinphils 0.1 10x3/uL (0.0-0.5); #Monocytes 0.5 10x3/uL (0.0-1.1); %Basophils 1.1 % (0.0-2.0); %Eosinophils 3.8 % (0.0-6.0); %Lymphocytes 49.2 % (18.0-47.0); %Monocytes 12.4 % (0.0-10.0); Mean Corpuscular HGB CONC 33.5 g/dL (32.0-36.0); Mean Corpuscular Volume 86.6 fl (81.2-95.1); Mean Platelet Volume 10.7 fl (7.4-10.4); Platelet Count 231 10x3/uL (150-450); RBC Distribution Width 14.5 % (11.5-14.5); Red Blood Cell (RBC) Count 4.48 10x6/uL (4.32-5.72); White Blood Cell (WBC) Count 3.6 10x3/uL (3.5-10.5)
[2021-12-28 04:08] LABS: #Neutrophils 1.2 10x3/uL (1.5-8.4); %Neutrophils 33.5 % (40.0-75.0)
[2021-12-28] MEDS: Furosemide 40 MG TAB PO SCH (09:05)
[2021-12-28] MEDS: Lisinopril 20 MG TAB PO SCH (09:05)
[2021-12-28] MEDS: Carvedilol 25 MG TAB PO SCH ×2 (09:06→16:27)
[2021-12-28] MEDS: cloNIDine 0.1 MG TAB PO SCH (09:06)
[2021-12-28] MEDS: Potassium Chloride 10 MEQ TAB PO SCH (09:06)
[2021-12-28] MEDS: Aspirin 81 mg Enteric Coated Tablet PO SCH (09:06)
[2021-12-28] MEDS: Ubidecarenone 50 MG CAP PO SCH (09:06)
[2021-12-28] MEDS: Colchicine 0.6 MG TAB PO SCH (09:06)
[2021-12-28] MEDS: hydrALAZINE 25 MG TAB PO SCH ×2 (09:07→15:38)
[2021-12-28] MEDS: Fluticasone Propionate Nasal Spray 16 gm Bottle NASAL SCH (09:07)
[2021-12-28] MEDS: Isosorbide Dinitrate 20 MG TAB PO SCH (09:07)
[2021-12-28] MEDS: Atorvastatin Calcium 10 MG TAB PO SCH (09:08)
[2021-12-28] MEDS: Azelastine 137 MCG/Spray 30 ML NS SCH (09:08)
[2021-12-28] MEDS: ALPRAZolam 0.25 MG TAB PO SCH (09:08)
[2021-12-28] MEDS: Apixaban 5 MG TAB PO SCH (09:08)
[2021-12-28] MEDS ORDERED: Isosorbide Dinitrate 20 MG TAB PO SCH ×2 (10:00→15:00)
[2021-12-28] MEDS ORDERED: Potassium Chloride 20 MEQ TAB PO SCH (11:00)
[2021-12-28 17:22] VITALS: BP 140/100; TEMP 96.3
[2021-12-29] MEDS ORDERED: Potassium Chloride 20 MEQ TAB PO SCH (08:00)
== END 2021-12-28 16:50 | disposition home or self-care (01) | DRG 309 ==
LOC: UNDOADMOB 23:14 → CSHTELE 23:14 → INTOOBSV 23:14 → CSHTELE 12-25 02:55 → OBSVTOIN 12-27 18:31
PROVIDERS: ADMIT Family Medicine; ATTEND Hospitalist
PROC: 5A09357 Assistance with Respiratory Ventilation, Less than 24 Consecutive Hours, Continuous Positive Airway Pressure (ICD-10-PCS; principal; 2021-12-27)
DX: I48.4 Atypical atrial flutter (principal); I50.32 Chronic diastolic (congestive) heart failure; I13.0 Hypertensive heart and chronic kidney disease with heart failure and stage 1 through stage 4 chronic kidney disease, or unspecified chronic kidney disease; I48.19 Other persistent atrial fibrillation; G47.33 Obstructive sleep apnea (adult) (pediatric); E87.6 Hypokalemia; E78.5 Hyperlipidemia, unspecified; K21.9 Gastro-esophageal reflux disease without esophagitis; I25.10 Atherosclerotic heart disease of native coronary artery without angina pectoris; N18.9 Chronic kidney disease, unspecified; E66.01 Morbid (severe) obesity due to excess calories; Z20.822 Contact with and (suspected) exposure to COVID-19; Z79.82 Long term (current) use of aspirin; Z79.51 Long term (current) use of inhaled steroids; Z88.8 Allergy status to other drugs, medicaments and biological substances; Z79.899 Other long term (current) drug therapy; Z68.31 Body mass index [BMI] 31.0-31.9, adult
CPT/HCPCS: 36415; 80048; 80061; 80076; 83036; 83735; 84443; 84484; 85025; 85610; 85730; 86850; 86900; 86901; 93005; 93010; 94660; 94760; 96374; 96375; 96376; G0378; J0360; J3475; J7050; U0003; U0005

== ENCOUNTER 2022-01-05 10:06 | Emergency (ER) | payer OTHER ==
[2022-01-05 10:44] LABS: #Eosinphils 0.1 10x3/uL (0.0-0.5); #Monocytes 0.4 10x3/uL (0.0-1.1); #Neutrophils 1.1 10x3/uL (1.5-8.4); %Basophils 1.5 % (0.0-2.0); %Lymphocytes 40.8 % (18.0-47.0); %Neutrophils 39.7 % (40.0-75.0); Hemoglobin 15.2 g/dL (13.5-17.5); Mean Corpuscular HGB CONC 33.6 g/dL (32.0-36.0); Mean Corpuscular Hemoglobin 29.3 pg (27.0-33.0); Mean Corpuscular Volume 87.1 fl (81.2-95.1); Mean Platelet Volume 10.3 fl (7.4-10.4); Platelet Count 224 10x3/uL (150-450); RBC Distribution Width 14.3 % (11.5-14.5); Red Blood Cell (RBC) Count 5.19 10x6/uL (4.32-5.72); White Blood Cell (WBC) Count 2.7 10x3/uL (3.5-10.5)
[2022-01-05 11:03] LABS: ALT (SGPT) 14 U/L (8-55); AST (SGOT) 12 U/L (5-34); Albumin 4.4 g/dL (3.5-5.0); Alkaline Phosphatase 84 U/L (40-110); Anion Gap 16 mmol/L (10-20); BUN (Urea Nitrogen) 15 mg/dL (8.4-25.7); Calc. Creatinine Clearance 0 mL/min (70-130); Calcium 9.4 mg/dL (7.8-10.44); Carbon Dioxide 26 mmol/L (22-29); Chloride 104 mmol/L (98-107); Glucose 92 mg/dL (70-105); Potassium 3.4 mmol/L (3.5-5.1); Protein, Total 7.4 g/dL (6.0-8.3); Sodium 143 mmol/L (136-145)
[2022-01-05 11:20] LABS: CKMB 1.1 ng/mL (0-6.6)
[2022-01-05] MEDS ORDERED: Furosemide 40 MG/4 ML VIAL ONE (12:57)
[2022-01-05 14:03] LABS: Troponin I 0.092 ng/mL (< 0.028)
== END 2022-01-05 14:29 | disposition home or self-care (01) ==
LOC: CSHERS 10:06
DX: I11.0 Hypertensive heart disease with heart failure (principal); I50.9 Heart failure, unspecified; I48.91 Unspecified atrial fibrillation; E78.5 Hyperlipidemia, unspecified; E66.9 Obesity, unspecified
CPT/HCPCS: 36415; 71045; 80053; 82553; 83880; 84484; 85025; 93005; J1940

== ENCOUNTER 2022-01-06 10:12 | Emergency (ER) | payer OTHER ==
[2022-01-06 10:58] LABS: #Eosinphils 0.1 10x3/uL (0.0-0.5); #Monocytes 0.4 10x3/uL (0.0-1.1); #Neutrophils 1.1 10x3/uL (1.5-8.4); %Eosinophils 2.7 % (0.0-6.0); %Lymphocytes 43.3 % (18.0-47.0); %Monocytes 14.1 % (0.0-10.0); %Neutrophils 38.9 % (40.0-75.0); Hemoglobin 15.1 g/dL (13.5-17.5); Mean Corpuscular HGB CONC 33.9 g/dL (32.0-36.0); Mean Corpuscular Hemoglobin 29.1 pg (27.0-33.0); Mean Corpuscular Volume 85.7 fl (81.2-95.1); Platelet Count 222 10x3/uL (150-450); RBC Distribution Width 14.6 % (11.5-14.5); Red Blood Cell (RBC) Count 5.19 10x6/uL (4.32-5.72); White Blood Cell (WBC) Count 2.9 10x3/uL (3.5-10.5)
[2022-01-06 11:00] LABS: INR-International Normal Ratio 1.3; PTT 31.6 sec (22.0-33.0); Prothrombin Time 13.5 sec (9.5-12.1)
[2022-01-06 11:07] LABS: ALT (SGPT) 17 U/L (8-55); AST (SGOT) 14 U/L (5-34); Albumin 4.3 g/dL (3.5-5.0); Alkaline Phosphatase 78 U/L (40-110); Anion Gap 16 mmol/L (10-20); BUN (Urea Nitrogen) 16 mg/dL (8.4-25.7); Calc. Creatinine Clearance 0 mL/min (70-130); Calcium 9.5 mg/dL (7.8-10.44); Carbon Dioxide 25 mmol/L (22-29); Chloride 103 mmol/L (98-107); Glucose 94 mg/dL (70-105); Potassium 3.1 mmol/L (3.5-5.1); Protein, Total 7.3 g/dL (6.0-8.3); Sodium 141 mmol/L (136-145)
[2022-01-06] MEDS ORDERED: Meclizine HCl 25 MG TAB ONE (11:20)
[2022-01-06] MEDS ORDERED: Diazepam 10 MG/2 ML SYRINGE ONE (11:21)
[2022-01-06 11:23] LABS: CKMB 1.2 ng/mL (0-6.6)
== END 2022-01-06 13:20 | disposition home or self-care (01) ==
LOC: CSHERS 10:12
DX: I48.91 Unspecified atrial fibrillation (principal); I10 Essential (primary) hypertension; E78.5 Hyperlipidemia, unspecified; I11.0 Hypertensive heart disease with heart failure; I50.9 Heart failure, unspecified; E66.9 Obesity, unspecified
CPT/HCPCS: 36415; 70450; 71045; 80053; 82553; 83880; 84484; 85025; 85610; 85730; 93005; 96374; J1940; J3360

== ENCOUNTER 2022-03-18 15:20 | Emergency (ER) | payer OTHER | END 2022-03-18 18:30 | disposition home or self-care (01) | LOC: CSHERS 15:20 | DX: B34.9 Viral infection, unspecified (principal); E78.5 Hyperlipidemia, unspecified; I10 Essential (primary) hypertension; E66.9 Obesity, unspecified | CPT/HCPCS: 71045; 99283 ==

== ENCOUNTER 2022-06-16 22:09 | Emergency (ER) | payer OTHER ==
[2022-06-16 22:45] LABS: #Basophils 0.1 10x3/uL (0.0-0.2); #Eosinphils 0.2 10x3/uL (0.0-0.5); #Monocytes 0.5 10x3/uL (0.0-1.1); #Neutrophils 1.9 10x3/uL (1.5-8.4); %Basophils 1.1 % (0.0-2.0); %Lymphocytes 38.9 % (18.0-47.0); %Monocytes 12.2 % (0.0-10.0); %Neutrophils 42.6 % (40.0-75.0); Hemoglobin 14.9 g/dL (13.5-17.5); Mean Corpuscular HGB CONC 34.4 g/dL (32.0-36.0); Mean Corpuscular Hemoglobin 29.7 pg (27.0-33.0); Mean Corpuscular Volume 86.3 fl (81.2-95.1); Mean Platelet Volume 10.1 fl (7.4-10.4); Platelet Count 278 10x3/uL (150-450); RBC Distribution Width 13.6 % (11.5-14.5); Red Blood Cell (RBC) Count 5.02 10x6/uL (4.32-5.72); White Blood Cell (WBC) Count 4.4 10x3/uL (3.5-10.5)
[2022-06-16 23:03] LABS: ALT (SGPT) 19 U/L (8-55); AST (SGOT) 16 U/L (5-34); Albumin 4.1 g/dL (3.5-5.0); Alkaline Phosphatase 112 U/L (40-110); Anion Gap 14 mmol/L (10-20); BUN (Urea Nitrogen) 14 mg/dL (8.4-25.7); Bilirubin, Total 0.5 mg/dL (0.2-1.2); Calc. Creatinine Clearance 0 mL/min (70-130); Calcium 8.9 mg/dL (7.8-10.44); Carbon Dioxide 24 mmol/L (22-29); Chloride 106 mmol/L (98-107); Estimated GFR 59; Glucose 127 mg/dL (70-105); Potassium 3.2 mmol/L (3.5-5.1); Protein, Total 7.1 g/dL (6.0-8.3); Sodium 141 mmol/L (136-145)
[2022-06-16 23:27] LABS: SARS-CoV-2 NAA Rapid Test Not Detected (NotDetected)
== END 2022-06-17 02:35 | disposition home or self-care (01) ==
LOC: CSHERS 22:09
DX: R42 Dizziness and giddiness (principal); E78.5 Hyperlipidemia, unspecified; I10 Essential (primary) hypertension; E66.9 Obesity, unspecified; Z20.822 Contact with and (suspected) exposure to COVID-19; Z79.899 Other long term (current) drug therapy
CPT/HCPCS: 71045; 80053; 83880; 84484; 85025; 93005; U0002

== ENCOUNTER 2022-07-26 13:53 | Observation (INO) | payer OTHER ==
[2022-07-26 15:43] LABS: #Eosinphils 0.1 10x3/uL (0.0-0.5); #Monocytes 0.5 10x3/uL (0.0-1.1); %Basophils 0.7 % (0.0-2.0); %Eosinophils 3.4 % (0.0-6.0); %Lymphocytes 35.2 % (18.0-47.0); %Monocytes 11.1 % (0.0-10.0); %Neutrophils 49.6 % (40.0-75.0); Hemoglobin 15.3 g/dL (13.5-17.5); Mean Corpuscular HGB CONC 34.9 g/dL (32.0-36.0); Mean Corpuscular Hemoglobin 29.9 pg (27.0-33.0); Mean Corpuscular Volume 85.7 fl (81.2-95.1); Platelet Count 260 10x3/uL (150-450); RBC Distribution Width 13.1 % (11.5-14.5); Red Blood Cell (RBC) Count 5.12 10x6/uL (4.32-5.72); White Blood Cell (WBC) Count 4.1 10x3/uL (3.5-10.5)
[2022-07-26 15:48] LABS: ALT (SGPT) 21 U/L (8-55); AST (SGOT) 19 U/L (5-34); Albumin 4.3 g/dL (3.5-5.0); Alkaline Phosphatase 98 U/L (40-110); Anion Gap 15 mmol/L (10-20); BUN (Urea Nitrogen) 15 mg/dL (8.4-25.7); Bilirubin, Total 0.6 mg/dL (0.2-1.2); Calc. Creatinine Clearance 0 mL/min (70-130); Calcium 9.3 mg/dL (7.8-10.44); Carbon Dioxide 24 mmol/L (22-29); Chloride 106 mmol/L (98-107); Estimated GFR 55; Glucose 102 mg/dL (70-105); Lipase 35 U/L (8-78); Magnesium 2.1 mg/dL (1.6-2.6); Potassium 3.5 mmol/L (3.5-5.1); Protein, Total 7.3 g/dL (6.0-8.3); Sodium 141 mmol/L (136-145)
[2022-07-26] MEDS ORDERED: Acetaminophen 325 MG TAB PO PRN (19:13)
[2022-07-26] MEDS ORDERED: Electrolyte Replacement Protocol 1 EACH FS SCH (19:30)
[2022-07-26] MEDS ORDERED: cloNIDine 0.1 MG TAB ONE (20:42)
[2022-07-26] MEDS ORDERED: hydrALAZINE 25 MG TAB ONE (20:43)
[2022-07-26 20:45] VITALS: BMI 32.1
[2022-07-26] MEDS: Famotidine 20 MG TAB PO SCH (20:57)
[2022-07-26] MEDS: Apixaban 5 MG TAB PO SCH (20:57)
[2022-07-26] MEDS: hydrALAZINE 25 MG TAB PO SCH (20:57)
[2022-07-26] MEDS: cloNIDine 0.1 MG TAB PO SCH (20:57)
[2022-07-26] MEDS: Isosorbide Dinitrate 20 MG TAB PO SCH (20:59)
[2022-07-26] MEDS ORDERED: Atorvastatin Calcium 10 MG TAB PO SCH (21:00)
[2022-07-27] MEDS ORDERED: Apixaban 5 MG TAB ONE (08:57)
[2022-07-27] MEDS ORDERED: Furosemide 40 MG TAB ONE (08:58)
[2022-07-27] MEDS ORDERED: hydrALAZINE 25 MG TAB ONE (08:58)
[2022-07-27] MEDS ORDERED: cloNIDine 0.1 MG TAB ONE (08:58)
[2022-07-27] MEDS ORDERED: Furosemide 40 MG TAB PO SCH (09:00)
[2022-07-27] MEDS ORDERED: Famotidine 20 MG TAB ONE ×2 (09:00→10:49)
[2022-07-27] MEDS: Famotidine 20 MG TAB PO SCH (10:56)
[2022-07-27] MEDS: Apixaban 5 MG TAB PO SCH (10:56)
[2022-07-27] MEDS: cloNIDine 0.1 MG TAB PO SCH (10:56)
[2022-07-27 10:57] VITALS: BP 173/127
[2022-07-27] MEDS: hydrALAZINE 25 MG TAB PO SCH (10:57)
[2022-07-27] MEDS: Isosorbide Dinitrate 20 MG TAB PO SCH (10:57)
== END 2022-07-27 13:15 | disposition home or self-care (01) ==
LOC: CSHERS 13:53 → CSHERHOLD 20:41
PROVIDERS: ADMIT Emergency Medicine; ATTEND Family Medicine
DX: R55 Syncope and collapse (principal); I48.0 Paroxysmal atrial fibrillation; I13.0 Hypertensive heart and chronic kidney disease with heart failure and stage 1 through stage 4 chronic kidney disease, or unspecified chronic kidney disease; I50.32 Chronic diastolic (congestive) heart failure; N18.30 Chronic kidney disease, stage 3 unspecified; E78.5 Hyperlipidemia, unspecified; K21.9 Gastro-esophageal reflux disease without esophagitis; G47.33 Obstructive sleep apnea (adult) (pediatric); I48.20 Chronic atrial fibrillation, unspecified; I77.819 Aortic ectasia, unspecified site; Z79.82 Long term (current) use of aspirin; Z79.01 Long term (current) use of anticoagulants; Z79.899 Other long term (current) drug therapy; Z88.8 Allergy status to other drugs, medicaments and biological substances; Z98.890 Other specified postprocedural states
CPT/HCPCS: 71045; 80053; 83690; 83735; 83880; 84484; 85025; 93005; 94760; G0378

== ENCOUNTER 2023-03-08 14:32 | Observation (INO) | payer OTHER ==
[2023-03-08 15:08] LABS: #Basophils 0.1 10x3/uL (0.0-0.2); #Eosinphils 0.2 10x3/uL (0.0-0.5); #Monocytes 0.4 10x3/uL (0.0-1.1); #Neutrophils 2.5 10x3/uL (1.5-8.4); %Eosinophils 4.1 % (0.0-6.0); %Lymphocytes 35.4 % (18.0-47.0); %Monocytes 8.6 % (0.0-10.0); %Neutrophils 50.7 % (40.0-75.0); Hematocrit 47.6 % (38.8-50.0); Hemoglobin 16.1 g/dL (13.5-17.5); Mean Corpuscular HGB CONC 33.8 g/dL (32.0-36.0); Mean Corpuscular Hemoglobin 28.2 pg (27.0-33.0); Mean Corpuscular Volume 83.5 fl (81.2-95.1); Mean Platelet Volume 10.4 fl (7.4-10.4); Platelet Count 285 10x3/uL (150-450); RBC Distribution Width 13.9 % (11.5-14.5); White Blood Cell (WBC) Count 4.9 10x3/uL (3.5-10.5)
[2023-03-08 15:17] LABS: ALT (SGPT) 14 U/L (8-55); AST (SGOT) 15 U/L (5-34); Albumin 4.7 g/dL (3.5-5.0); Alkaline Phosphatase 88 U/L (40-110); Anion Gap 16 mmol/L (10-20); BUN (Urea Nitrogen) 17 mg/dL (8.4-25.7); Bilirubin, Total 0.7 mg/dL (0.2-1.2); Calc. Creatinine Clearance 0 mL/min (70-130); Calcium 9.1 mg/dL (7.8-10.44); Carbon Dioxide 23 mmol/L (22-29); Chloride 107 mmol/L (98-107); Estimated GFR 50; Globulin 3.3 g/dL (2.4-3.5); Glucose 123 mg/dL (70-105); Potassium 3.7 mmol/L (3.5-5.1); Sodium 142 mmol/L (136-145)
[2023-03-08 15:20] LABS: Troponin I 0.023 ng/mL (< 0.028)
[2023-03-08] MEDS ORDERED: Ondansetron PF 4 MG/2 ML Vial ONE (17:16)
[2023-03-08] MEDS ORDERED: Ondansetron ODT 4 MG TAB PO PRN (17:44)
[2023-03-08] MEDS ORDERED: Ondansetron PF 4 MG/2 ML Vial IVP PRN (17:44)
[2023-03-08] MEDS ORDERED: Acetaminophen 650 MG Suppository PR PRN (17:44)
[2023-03-08] MEDS ORDERED: Acetaminophen 325 MG TAB PO PRN (17:44)
[2023-03-08 18:39] LABS: Troponin I 0.023 ng/mL (< 0.028)
[2023-03-08 20:02] VITALS: BMI 30.8
[2023-03-08] MEDS ORDERED: Apixaban 5 MG TAB PO SCH (21:00)
[2023-03-08 21:08] LABS: Troponin I 0.021 ng/mL (< 0.028)
[2023-03-08] MEDS ORDERED: Aspirin 81 mg Enteric Coated Tablet PO SCH (21:30)
[2023-03-08] MEDS ORDERED: Carvedilol 25 MG TAB PO SCH (22:00)
[2023-03-09 04:29] LABS: #Eosinphils 0.2 10x3/uL (0.0-0.5); #Monocytes 0.4 10x3/uL (0.0-1.1); #Neutrophils 1.8 10x3/uL (1.5-8.4); %Basophils 0.8 % (0.0-2.0); %Eosinophils 3.8 % (0.0-6.0); %Lymphocytes 39.4 % (18.0-47.0); %Monocytes 10.7 % (0.0-10.0); Hematocrit 43.4 % (38.8-50.0); Hemoglobin 14.7 g/dL (13.5-17.5); Mean Corpuscular HGB CONC 33.9 g/dL (32.0-36.0); Mean Corpuscular Hemoglobin 28.7 pg (27.0-33.0); Mean Corpuscular Volume 84.8 fl (81.2-95.1); Mean Platelet Volume 10.3 fl (7.4-10.4); Platelet Count 243 10x3/uL (150-450); Red Blood Cell (RBC) Count 5.12 10x6/uL (4.32-5.72); White Blood Cell (WBC) Count 3.9 10x3/uL (3.5-10.5)
[2023-03-09] MEDS ORDERED: cloNIDine 0.1 MG TAB PO SCH (04:30)
[2023-03-09 04:43] LABS: Anion Gap 17 mmol/L (10-20); BUN (Urea Nitrogen) 14 mg/dL (8.4-25.7); Calc. Creatinine Clearance 86 mL/min (70-130); Calcium 8.7 mg/dL (7.8-10.44); Carbon Dioxide 21 mmol/L (22-29); Chloride 107 mmol/L (98-107); Estimated GFR 57; Glucose 83 mg/dL (70-105); Potassium 3.2 mmol/L (3.5-5.1); Sodium 142 mmol/L (136-145)
[2023-03-09] MEDS: cloNIDine 0.1 MG TAB PO SCH ×2 (04:58→15:47)
[2023-03-09] MEDS: Carvedilol 25 MG TAB PO SCH ×2 (08:22→16:43)
[2023-03-09] MEDS: hydrALAZINE 25 MG TAB PO SCH ×2 (08:22→15:46)
[2023-03-09] MEDS: Isosorbide Dinitrate 20 MG TAB PO SCH ×2 (08:41→15:47)
[2023-03-09] MEDS ORDERED: Azelastine 137 MCG/NASAL Spray 30 ML NS SCH (09:00)
[2023-03-09] MEDS ORDERED: Potassium Chloride 20 MEQ TAB PO SCH (09:00)
[2023-03-09] MEDS ORDERED: NIFEdipine XL 90 MG TAB PO SCH (09:00)
[2023-03-09] MEDS ORDERED: Valsartan 80 MG TAB PO SCH (09:00)
[2023-03-09] MEDS ORDERED: Minoxidil 2.5 MG TAB PO SCH (09:00)
[2023-03-09] MEDS ORDERED: Magnesium Oxide 400 MG TAB PO SCH (09:00)
[2023-03-09 12:59] VITALS: TEMP 97.7
[2023-03-09 15:49] VITALS: BP 132/82
== END 2023-03-09 17:36 | disposition home or self-care (01) ==
LOC: CSHERS 14:32 → CSHTELE 17:03
PROVIDERS: ADMIT Internal Medicine; ATTEND Internal Medicine
DX: I48.92 Unspecified atrial flutter (principal); I48.20 Chronic atrial fibrillation, unspecified; I13.0 Hypertensive heart and chronic kidney disease with heart failure and stage 1 through stage 4 chronic kidney disease, or unspecified chronic kidney disease; I50.32 Chronic diastolic (congestive) heart failure; N18.30 Chronic kidney disease, stage 3 unspecified; G47.33 Obstructive sleep apnea (adult) (pediatric); K21.9 Gastro-esophageal reflux disease without esophagitis; E78.5 Hyperlipidemia, unspecified; E87.6 Hypokalemia; Z79.01 Long term (current) use of anticoagulants; Z79.82 Long term (current) use of aspirin; Z79.899 Other long term (current) drug therapy; Z88.8 Allergy status to other drugs, medicaments and biological substances
CPT/HCPCS: 36415; 71045; 80048; 80053; 83735; 83880; 84484; 85025; 93005; 93010; 94760; 96372; 96374; 96375; 99152; G0378; J1650; J2405

== ENCOUNTER 2023-05-24 05:35 | Emergency (ER) | payer OTHER ==
[2023-05-24 06:55] LABS: #Eosinphils 0.2 10x3/uL (0.0-0.5); #Monocytes 0.4 10x3/uL (0.0-1.1); #Neutrophils 1.6 10x3/uL (1.5-8.4); %Basophils 0.8 % (0.0-2.0); %Eosinophils 4.4 % (0.0-6.0); %Lymphocytes 43.4 % (18.0-47.0); %Monocytes 10.1 % (0.0-10.0); Hematocrit 44.9 % (38.8-50.0); Hemoglobin 15.3 g/dL (13.5-17.5); Mean Corpuscular HGB CONC 34.1 g/dL (32.0-36.0); Mean Corpuscular Hemoglobin 28.8 pg (27.0-33.0); Mean Corpuscular Volume 84.6 fl (81.2-95.1); Mean Platelet Volume 9.7 fl (7.4-10.4); Platelet Count 243 10x3/uL (150-450); RBC Distribution Width 13.3 % (11.5-14.5); Red Blood Cell (RBC) Count 5.31 10x6/uL (4.32-5.72); White Blood Cell (WBC) Count 3.9 10x3/uL (3.5-10.5)
[2023-05-24 07:05] LABS: ALT (SGPT) 15 U/L (8-55); AST (SGOT) 15 U/L (5-34); Albumin 4.2 g/dL (3.5-5.0); Alkaline Phosphatase 77 U/L (40-110); Anion Gap 16 mmol/L (10-20); BUN (Urea Nitrogen) 20 mg/dL (8.4-25.7); Bilirubin, Total 0.7 mg/dL (0.2-1.2); Calc. Creatinine Clearance 0 mL/min (70-130); Calcium 9.2 mg/dL (7.8-10.44); Carbon Dioxide 22 mmol/L (22-29); Chloride 104 mmol/L (98-107); Estimated GFR 45; Globulin 3.6 g/dL (2.4-3.5); Glucose 108 mg/dL (70-105); Potassium 3.3 mmol/L (3.5-5.1); Protein, Total 7.8 g/dL (6.0-8.3); Sodium 139 mmol/L (136-145)
[2023-05-24 07:08] LABS: Troponin I 0.018 ng/mL (< 0.028)
== END 2023-05-24 08:33 | disposition home or self-care (01) ==
LOC: CSHERS 05:35
DX: I10 Essential (primary) hypertension (principal); I48.91 Unspecified atrial fibrillation; E87.6 Hypokalemia; E78.5 Hyperlipidemia, unspecified; E66.9 Obesity, unspecified
CPT/HCPCS: 71045; 80053; 84484; 85025; 93005

== ENCOUNTER 2023-06-11 02:34 | Observation (INO) | payer OTHER ==
[2023-06-11 03:25] LABS: #Monocytes 0.7 10x3/uL (0.0-1.1); #Neutrophils 4.9 10x3/uL (1.5-8.4); %Basophils 0.3 % (0.0-2.0); %Eosinophils 0.4 % (0.0-6.0); %Lymphocytes 17.9 % (18.0-47.0); %Neutrophils 71.1 % (40.0-75.0); Hematocrit 43.3 % (38.8-50.0); Hemoglobin 14.8 g/dL (13.5-17.5); Mean Corpuscular HGB CONC 34.2 g/dL (32.0-36.0); Mean Corpuscular Hemoglobin 29.2 pg (27.0-33.0); Mean Corpuscular Volume 85.6 fl (81.2-95.1); Platelet Count 182 10x3/uL (150-450); RBC Distribution Width 13.7 % (11.5-14.5); Red Blood Cell (RBC) Count 5.06 10x6/uL (4.32-5.72); White Blood Cell (WBC) Count 6.9 10x3/uL (3.5-10.5)
[2023-06-11 03:36] LABS: INR-International Normal Ratio 1.3; PTT 32.3 sec (22.0-33.0); Prothrombin Time 13.5 sec (9.5-12.1)
[2023-06-11 03:44] LABS: ALT (SGPT) 15 U/L (8-55); AST (SGOT) 21 U/L (5-34); Albumin 4.1 g/dL (3.5-5.0); Alkaline Phosphatase 73 U/L (40-110); Anion Gap 16 mmol/L (10-20); BUN (Urea Nitrogen) 18 mg/dL (8.4-25.7); Bilirubin, Total 1.6 mg/dL (0.2-1.2); Calc. Creatinine Clearance 0 mL/min (70-130); Calcium 8.4 mg/dL (7.8-10.44); Carbon Dioxide 21 mmol/L (22-29); Chloride 105 mmol/L (98-107); Estimated GFR 56; Glucose 99 mg/dL (70-105); Magnesium 1.9 mg/dL (1.6-2.6); Potassium 3.4 mmol/L (3.5-5.1); Protein, Total 7.1 g/dL (6.0-8.3); Sodium 139 mmol/L (136-145)
[2023-06-11 03:48] LABS: Troponin I 2.634 ng/mL (< 0.028)
[2023-06-11] MEDS ORDERED: Aspirin Chewable 81 MG TAB ONE (04:13)
[2023-06-11] MEDS ORDERED: Nitroglycerin 0.4 MG TAB 1 EACH ONE (04:14)
[2023-06-11] MEDS ORDERED: Magnesium Sulfate/D5W 1 GM/100 ML BAG ONE (04:24)
[2023-06-11] MEDS ORDERED: Potassium Chloride 20 MEQ TAB ONE (04:24)
[2023-06-11 05:00] LABS: SARS-CoV-2 NAA Rapid Test Not Detected (NotDetected)
[2023-06-11 05:47] LABS: Troponin I 2.232 ng/mL (< 0.028)
[2023-06-11] MEDS ORDERED: Furosemide 40 MG (4 mL) VIAL ONE (07:12)
[2023-06-11] MEDS: Carvedilol 25 MG TAB PO SCH ×2 (10:03→17:35)
[2023-06-11] MEDS: NIFEdipine XL 90 MG ER.TAB PO SCH (10:03)
[2023-06-11] MEDS: Apixaban 5 MG TAB PO SCH ×2 (10:04→20:59)
[2023-06-11] MEDS: Isosorbide Dinitrate 20 MG TAB PO SCH ×3 (10:22→20:59)
[2023-06-11] MEDS ORDERED: Iopamidol 370 76% 100 ML VIAL ONE (11:14)
[2023-06-11 11:23] VITALS: BMI 33.4
[2023-06-11] MEDS ORDERED: FLU VACC QS2023-24(6MOS UP)/PF 60 MCG/0.5 ML SYRINGE IM ONE (11:45)
[2023-06-11 11:53] LABS: Troponin I 1.964 ng/mL (< 0.028)
[2023-06-11] MEDS: Furosemide 40 MG (4 mL) VIAL SLOW IVP SCH (13:26)
[2023-06-11] MEDS: Potassium Chloride 20 MEQ TAB PO SCH (17:34)
[2023-06-12] MEDS: Furosemide 40 MG (4 mL) VIAL SLOW IVP SCH (05:29)
[2023-06-12 05:43] LABS: #Neutrophils 4.8 10x3/uL (1.5-8.4); %Basophils 0.4 % (0.0-2.0); %Eosinophils 0.4 % (0.0-6.0); %Lymphocytes 22.5 % (18.0-47.0); %Monocytes 13.4 % (0.0-10.0); Hematocrit 46.5 % (38.8-50.0); Hemoglobin 15.6 g/dL (13.5-17.5); Mean Corpuscular HGB CONC 33.5 g/dL (32.0-36.0); Mean Corpuscular Hemoglobin 28.7 pg (27.0-33.0); Mean Corpuscular Volume 85.6 fl (81.2-95.1); Mean Platelet Volume 10.2 fl (7.4-10.4); Platelet Count 193 10x3/uL (150-450); RBC Distribution Width 13.8 % (11.5-14.5); Red Blood Cell (RBC) Count 5.43 10x6/uL (4.32-5.72); White Blood Cell (WBC) Count 7.6 10x3/uL (3.5-10.5)
[2023-06-12 05:56] LABS: ALT (SGPT) 16 U/L (8-55); AST (SGOT) 20 U/L (5-34); Alkaline Phosphatase 82 U/L (40-110); Anion Gap 15 mmol/L (10-20); BUN (Urea Nitrogen) 23 mg/dL (8.4-25.7); Bilirubin, Total 1.7 mg/dL (0.2-1.2); Calc. Creatinine Clearance 68 mL/min (70-130); Calcium 9.2 mg/dL (7.8-10.44); Carbon Dioxide 25 mmol/L (22-29); Chloride 102 mmol/L (98-107); Estimated GFR 45; Globulin 3.9 g/dL (2.4-3.5); Glucose 101 mg/dL (70-105); Magnesium 2.1 mg/dL (1.6-2.6); Potassium 3.1 mmol/L (3.5-5.1); Protein, Total 7.9 g/dL (6.0-8.3); Sodium 139 mmol/L (136-145)
[2023-06-12] MEDS: Isosorbide Dinitrate 20 MG TAB PO SCH (08:30)
[2023-06-12] MEDS: Carvedilol 25 MG TAB PO SCH (08:30)
[2023-06-12] MEDS: NIFEdipine XL 90 MG ER.TAB PO SCH (08:30)
[2023-06-12] MEDS: Apixaban 5 MG TAB PO SCH (08:31)
[2023-06-12] MEDS: Potassium Chloride 20 MEQ TAB PO SCH (08:31)
[2023-06-12 13:14] VITALS: BP 124/91; TEMP 98.7
== END 2023-06-12 12:55 | disposition home or self-care (01) ==
LOC: CSHERS 02:34 → CSHTELE 09:02
PROVIDERS: ADMIT Hospitalist; ATTEND Hospitalist
DX: I13.0 Hypertensive heart and chronic kidney disease with heart failure and stage 1 through stage 4 chronic kidney disease, or unspecified chronic kidney disease (principal); I50.33 Acute on chronic diastolic (congestive) heart failure; N18.2 Chronic kidney disease, stage 2 (mild); I11.0 Hypertensive heart disease with heart failure; I48.20 Chronic atrial fibrillation, unspecified; G47.33 Obstructive sleep apnea (adult) (pediatric); R09.02 Hypoxemia; I21.A1 Myocardial infarction type 2; E78.5 Hyperlipidemia, unspecified; K21.9 Gastro-esophageal reflux disease without esophagitis; I21.4 Non-ST elevation (NSTEMI) myocardial infarction; I49.5 Sick sinus syndrome; Z88.8 Allergy status to other drugs, medicaments and biological substances; Z79.899 Other long term (current) drug therapy; Z79.82 Long term (current) use of aspirin; Z20.822 Contact with and (suspected) exposure to COVID-19; Z88.2 Allergy status to sulfonamides; Z98.890 Other specified postprocedural states
CPT/HCPCS: 36415; 71045; 71275; 80053; 83735; 83880; 84443; 84484; 85025; 85610; 85730; 93005; 93306; 94660; 94760; 96374; 96375; 96376; G0378; J1940; J3475; Q9967

== ENCOUNTER 2023-06-20 00:35 | Emergency (ER) | payer OTHER ==
[2023-06-20 02:13] LABS: #Basophils 0.1 10x3/uL (0.0-0.2); #Eosinphils 0.2 10x3/uL (0.0-0.5); #Monocytes 0.4 10x3/uL (0.0-1.1); #Neutrophils 2.3 10x3/uL (1.5-8.4); %Basophils 1.4 % (0.0-2.0); %Eosinophils 3.6 % (0.0-6.0); %Lymphocytes 33.8 % (18.0-47.0); %Monocytes 9.5 % (0.0-10.0); %Neutrophils 51.2 % (40.0-75.0); Hemoglobin 14.5 g/dL (13.5-17.5); Mean Corpuscular HGB CONC 34.5 g/dL (32.0-36.0); Mean Corpuscular Hemoglobin 29.3 pg (27.0-33.0); Mean Corpuscular Volume 84.8 fl (81.2-95.1); Mean Platelet Volume 9.9 fl (7.4-10.4); Platelet Count 301 10x3/uL (150-450); RBC Distribution Width 13.1 % (11.5-14.5); Red Blood Cell (RBC) Count 4.95 10x6/uL (4.32-5.72); White Blood Cell (WBC) Count 4.4 10x3/uL (3.5-10.5)
[2023-06-20 02:20] LABS: INR-International Normal Ratio 1.2; PTT 33.2 sec (22.0-33.0)
[2023-06-20 02:22] LABS: ALT (SGPT) 24 U/L (8-55); AST (SGOT) 16 U/L (5-34); Albumin 3.8 g/dL (3.5-5.0); Alkaline Phosphatase 84 U/L (40-110); Anion Gap 16 mmol/L (10-20); BUN (Urea Nitrogen) 14 mg/dL (8.4-25.7); Bilirubin, Total 0.6 mg/dL (0.2-1.2); Calc. Creatinine Clearance 0 mL/min (70-130); Calcium 8.6 mg/dL (7.8-10.44); Carbon Dioxide 24 mmol/L (22-29); Chloride 103 mmol/L (98-107); Estimated GFR 51; Glucose 109 mg/dL (70-105); Potassium 3.3 mmol/L (3.5-5.1); Protein, Total 6.8 g/dL (6.0-8.3); Sodium 140 mmol/L (136-145)
[2023-06-20 02:25] LABS: Troponin I 0.151 ng/mL (< 0.028)
== END 2023-06-20 03:00 | disposition home or self-care (01) ==
LOC: CSHERS 00:35
DX: R00.2 Palpitations (principal); R07.9 Chest pain, unspecified; I48.91 Unspecified atrial fibrillation; I10 Essential (primary) hypertension; E66.9 Obesity, unspecified; E78.5 Hyperlipidemia, unspecified; Z79.01 Long term (current) use of anticoagulants; Z79.82 Long term (current) use of aspirin; Z79.899 Other long term (current) drug therapy
CPT/HCPCS: 36415; 70450; 71045; 80053; 83735; 83880; 84484; 85025; 85610; 85730; 93005

== ENCOUNTER 2023-10-23 21:34 | Inpatient (IN) | payer OTHER ==
[2023-10-23] MEDS ORDERED: Aspirin Chewable 81 MG TAB ONE (21:43)
[2023-10-23] MEDS ORDERED: Furosemide 40 MG (4 mL) VIAL ONE (21:43)
[2023-10-23] MEDS ORDERED: Nitroglycerin 2% Ointment 1 INCH/1 GM Packet ONE (21:43)
[2023-10-23] MEDS ORDERED: Ondansetron PF 4 MG/2 ML Vial ONE (21:54)
[2023-10-23 22:19] LABS: Troponin I 0.033 ng/mL (< 0.028)
[2023-10-23 22:21] LABS: ALT (SGPT) 26 U/L (8-55); AST (SGOT) 27 U/L (5-34); Albumin 4.4 g/dL (3.4-4.8); Alkaline Phosphatase 109 U/L (40-110); Anion Gap 16 mmol/L (10-20); BUN (Urea Nitrogen) 19 mg/dL (8.4-25.7); Bilirubin, Total 1.2 mg/dL (0.2-1.2); Calc. Creatinine Clearance 0 mL/min (70-130); Calcium 9.2 mg/dL (7.8-10.44); Carbon Dioxide 23 mmol/L (23-31); Chloride 102 mmol/L (98-107); Estimated GFR 44; Globulin 3.7 g/dL (2.4-3.5); Glucose 117 mg/dL (80-115); Lipase 43 U/L (8-78); Potassium 3.3 mmol/L (3.5-5.1); Protein, Total 8.1 g/dL (5.8-8.1); Sodium 138 mmol/L (136-145)
[2023-10-23 22:22] LABS: #Basophils 0.04 10x3/uL (0.0-0.2); #Eosinphils 0.14 10x3/uL (0.0-0.5); #Monocytes 0.73 10x3/uL (0.0-1.1); #Neutrophils 4.85 10x3/uL (1.5-8.4); %Basophils 0.5 % (0.0-2.0); %Eosinophils 1.8 % (0.0-6.0); %Lymphocytes 24.8 % (18.0-47.0); %Monocytes 9.5 % (0.0-10.0); %Neutrophils 63.3 % (40.0-75.0); Hemoglobin 16.2 g/dL (13.5-17.5); Mean Corpuscular HGB CONC 34.5 g/dL (32.0-36.0); Mean Corpuscular Hemoglobin 29.7 pg (27.0-33.0); Mean Corpuscular Volume 86.1 fl (81.2-95.1); Mean Platelet Volume 10.4 fl (7.4-10.4); Platelet Count 242 10x3/uL (150-450); RBC Distribution Width 13.3 % (11.5-14.5); Red Blood Cell (RBC) Count 5.46 10x6/uL (4.32-5.72); White Blood Cell (WBC) Count 7.7 10x3/uL (3.5-10.5)
[2023-10-23 23:38] LABS: Influenza A by NAA Not Detected (NotDetected); Influenza B by NAA Not Detected (NotDetected); SARS-CoV-2 NAA Rapid Test Not Detected (NotDetected)
[2023-10-24 01:09] LABS: Troponin I 0.022 ng/mL (< 0.028)
[2023-10-24] MEDS ORDERED: Potassium Chloride 20 MEQ TAB ONE (01:11)
[2023-10-24] MEDS ORDERED: Potassium Chloride 20 MEQ (100 mL) BAG ONE ×2 (01:11→02:56)
[2023-10-24] MEDS: Potassium Chloride 20 MEQ TAB PO SCH (01:22)
[2023-10-24] MEDS: Potassium Chloride 20 MEQ in Premix 1 BAG IVPB SCH (01:22)
[2023-10-24 04:28] LABS: #Basophils 0.04 10x3/uL (0.0-0.2); #Eosinphils 0.03 10x3/uL (0.0-0.5); #Monocytes 0.67 10x3/uL (0.0-1.1); #Neutrophils 4.16 10x3/uL (1.5-8.4); %Basophils 0.6 % (0.0-2.0); %Eosinophils 0.5 % (0.0-6.0); %Lymphocytes 20.6 % (18.0-47.0); %Monocytes 10.8 % (0.0-10.0); %Neutrophils 67.3 % (40.0-75.0); Hematocrit 43.1 % (38.8-50.0); Hemoglobin 15.2 g/dL (13.5-17.5); Mean Corpuscular HGB CONC 35.3 g/dL (32.0-36.0); Mean Corpuscular Hemoglobin 30.5 pg (27.0-33.0); Mean Corpuscular Volume 86.4 fl (81.2-95.1); Mean Platelet Volume 10.3 fl (7.4-10.4); Platelet Count 219 10x3/uL (150-450); RBC Distribution Width 13.2 % (11.5-14.5); Red Blood Cell (RBC) Count 4.99 10x6/uL (4.32-5.72); White Blood Cell (WBC) Count 6.2 10x3/uL (3.5-10.5)
[2023-10-24 04:35] LABS: Magnesium 1.9 mg/dL (1.6-2.6)
[2023-10-24 04:42] LABS: Troponin I 0.019 ng/mL (< 0.028)
[2023-10-24] MEDS ORDERED: Furosemide 40 MG (4 mL) VIAL ONE (06:05)
[2023-10-24] MEDS: Furosemide 40 MG (4 mL) VIAL SLOW IVP SCH (06:11)
[2023-10-24 07:00] LABS: Anion Gap 14 mmol/L (10-20); BUN (Urea Nitrogen) 19 mg/dL (8.4-25.7); Calc. Creatinine Clearance 84 mL/min (70-130); Calcium 8.8 mg/dL (7.8-10.44); Carbon Dioxide 24 mmol/L (23-31); Chloride 103 mmol/L (98-107); Estimated GFR 50; Glucose 100 mg/dL (80-115); Potassium 3.6 mmol/L (3.5-5.1); Sodium 137 mmol/L (136-145)
[2023-10-24] MEDS ORDERED: Apixaban 5 MG TAB ONE (08:24)
[2023-10-24] MEDS ORDERED: Carvedilol 25 MG TAB ONE (08:24)
[2023-10-24] MEDS ORDERED: cloNIDine 0.1 MG TAB ONE (08:26)
[2023-10-24] MEDS: Carvedilol 25 MG TAB PO SCH (08:44)
[2023-10-24] MEDS: cloNIDine 0.1 MG TAB PO SCH (08:45)
[2023-10-24] MEDS: Apixaban 5 MG TAB PO SCH (08:45)
[2023-10-24] MEDS: Isosorbide Dinitrate 20 MG TAB PO SCH (08:47)
[2023-10-24] MEDS: NIFEdipine XL 90 MG ER.TAB PO SCH (08:47)
[2023-10-24 12:14] VITALS: BMI 30.2
[2023-10-24] MEDS: Acetaminophen 325 MG TAB PO PRN (15:34)
[2023-10-24] MEDS ORDERED: Senokot S 8.6-50 MG TAB PO PRN (15:49)
[2023-10-24] MEDS ORDERED: Calcium Carbonate 500 MG ChewTAB PO PRN (15:49)
[2023-10-24] MEDS: Atorvastatin Calcium 10 MG TAB PO SCH (21:39)
[2023-10-25] MEDS: FLU VACC QS2023-24(6MOS UP)/PF 60 MCG/0.5 ML SYRINGE IM ONE (03:40)
[2023-10-25 04:48] LABS: #Basophils 0.02 10x3/uL (0.0-0.2); #Eosinphils 0.07 10x3/uL (0.0-0.5); #Monocytes 0.78 10x3/uL (0.0-1.1); #Neutrophils 3.62 10x3/uL (1.5-8.4); %Basophils 0.3 % (0.0-2.0); %Eosinophils 1.2 % (0.0-6.0); %Lymphocytes 25.6 % (18.0-47.0); %Monocytes 12.9 % (0.0-10.0); %Neutrophils 59.8 % (40.0-75.0); Hematocrit 42.5 % (38.8-50.0); Hemoglobin 14.7 g/dL (13.5-17.5); Mean Corpuscular HGB CONC 34.6 g/dL (32.0-36.0); Mean Corpuscular Hemoglobin 29.9 pg (27.0-33.0); Mean Corpuscular Volume 86.6 fl (81.2-95.1); Mean Platelet Volume 10.3 fl (7.4-10.4); Platelet Count 211 10x3/uL (150-450); RBC Distribution Width 13.4 % (11.5-14.5); Red Blood Cell (RBC) Count 4.91 10x6/uL (4.32-5.72); White Blood Cell (WBC) Count 6.1 10x3/uL (3.5-10.5)
[2023-10-25 04:51] LABS: Anion Gap 14 mmol/L (10-20); BUN (Urea Nitrogen) 24 mg/dL (8.4-25.7); Calc. Creatinine Clearance 63 mL/min (70-130); Calcium 8.8 mg/dL (7.8-10.44); Carbon Dioxide 24 mmol/L (23-31); Chloride 103 mmol/L (98-107); Estimated GFR 40; Glucose 103 mg/dL (80-115); Potassium 3.1 mmol/L (3.5-5.1); Sodium 138 mmol/L (136-145)
[2023-10-25] MEDS ORDERED: Furosemide 40 MG (4 mL) VIAL SLOW IVP SCH (09:00)
[2023-10-25] MEDS: Furosemide 20 MG TAB PO SCH (10:04)
[2023-10-25] MEDS: Potassium Chloride 20 MEQ TAB PO SCH (10:05)
[2023-10-25] MEDS: Magnesium Oxide 400 MG TAB PO SCH (10:05)
[2023-10-25 10:59] VITALS: BP 106/72; TEMP 98.5
== END 2023-10-25 11:25 | disposition home or self-care (01) | DRG 291 ==
LOC: CSHERS 21:34 → CSHERHOLD 23:39 → CSHTELE 10-24 12:05
PROVIDERS: ADMIT Family Medicine; ATTEND Internal Medicine
PROC: 5A09357 Assistance with Respiratory Ventilation, Less than 24 Consecutive Hours, Continuous Positive Airway Pressure (ICD-10-PCS; principal; 2023-10-24)
DX: I13.0 Hypertensive heart and chronic kidney disease with heart failure and stage 1 through stage 4 chronic kidney disease, or unspecified chronic kidney disease (principal); I50.33 Acute on chronic diastolic (congestive) heart failure; J96.01 Acute respiratory failure with hypoxia; Z88.8 Allergy status to other drugs, medicaments and biological substances; Z79.01 Long term (current) use of anticoagulants; Z79.899 Other long term (current) drug therapy; Z79.82 Long term (current) use of aspirin; I48.91 Unspecified atrial fibrillation; E78.5 Hyperlipidemia, unspecified; K21.9 Gastro-esophageal reflux disease without esophagitis; G47.33 Obstructive sleep apnea (adult) (pediatric); Z98.890 Other specified postprocedural states; E87.6 Hypokalemia; N18.32 Chronic kidney disease, stage 3b; E83.42 Hypomagnesemia; I49.3 Ventricular premature depolarization; E66.9 Obesity, unspecified; Z68.30 Body mass index [BMI] 30.0-30.9, adult
CPT/HCPCS: 36415; 71045; 80048; 80053; 83690; 83735; 83880; 84443; 84484; 85025; 93005; 93010; 93306; 94660; 94760; J1940; J2405; J3480

== ENCOUNTER 2024-02-12 08:09 | Emergency (ER) | payer OTHER ==
[2024-02-12] MEDS ORDERED: Metoprolol Tartrate 5 MG (5 mL) VIAL ONE (08:56)
[2024-02-12] MEDS ORDERED: Furosemide 40 MG (4 mL) VIAL ONE (08:56)
[2024-02-12] MEDS ORDERED: Magnesium 2 GM/50 ML BAG (IN WATER) ONE (08:57)
[2024-02-12 09:44] LABS: INR-International Normal Ratio 1.2; Prothrombin Time 13.3 sec (9.5-12.1)
[2024-02-12 09:49] LABS: ALT (SGPT) 15 U/L (8-55); AST (SGOT) 17 U/L (5-34); Albumin 4.1 g/dL (3.4-4.8); Alkaline Phosphatase 88 U/L (40-110); Anion Gap 15 mmol/L (10-20); BUN (Urea Nitrogen) 17 mg/dL (8.4-25.7); Bilirubin, Total 0.8 mg/dL (0.2-1.2); Calc. Creatinine Clearance 0 mL/min (70-130); Calcium 9.2 mg/dL (7.8-10.44); Carbon Dioxide 23 mmol/L (23-31); Chloride 104 mmol/L (98-107); Estimated GFR 51; Globulin 3.6 g/dL (2.4-3.5); Glucose 115 mg/dL (80-115); Magnesium 2.1 mg/dL (1.6-2.6); Potassium 3.3 mmol/L (3.5-5.1); Protein, Total 7.7 g/dL (5.8-8.1); Sodium 139 mmol/L (136-145)
[2024-02-12 09:53] LABS: Troponin I 0.015 ng/mL (< 0.028)
[2024-02-12 09:58] LABS: #Basophils 0.03 10x3/uL (0.0-0.2); #Eosinphils 0.11 10x3/uL (0.0-0.5); #Monocytes 0.29 10x3/uL (0.0-1.1); #Neutrophils 1.77 10x3/uL (1.5-8.4); %Basophils 0.9 % (0.0-2.0); %Eosinophils 3.5 % (0.0-6.0); %Lymphocytes 30.8 % (18.0-47.0); %Monocytes 9.1 % (0.0-10.0); %Neutrophils 55.7 % (40.0-75.0); Hematocrit 47.3 % (38.8-50.0); Hemoglobin 16.5 g/dL (13.5-17.5); Mean Corpuscular HGB CONC 34.9 g/dL (32.0-36.0); Mean Corpuscular Hemoglobin 29.9 pg (27.0-33.0); Mean Corpuscular Volume 85.8 fL (81.2-95.1); Mean Platelet Volume 10.3 fL (7.4-10.4); Platelet Count 237 10x3/uL (150-450); RBC Distribution Width 13.2 % (11.5-14.5); Red Blood Cell (RBC) Count 5.51 10x6/uL (4.32-5.72); White Blood Cell (WBC) Count 3.2 10x3/uL (3.5-10.5)
[2024-02-12 10:18] LABS: Clarity Clear (Clear); Leukocyte Negative (Negative); Nitrite Negative (Negative); Specific Gravity, Urine 1.015 (1.005-1.030)
[2024-02-12 10:19] LABS: Bilirubin Negative (Negative); Blood, Urine Negative (Negative); Glucose, Urine (Dipstick) Normal (Negative); Ketone, Urine Negative (Negative); Protein, Urine (Dipstick) Negative (Neg-Trace); RBC/HPF 0-3 HPF (0-3); Squamous Epithelial 0-3 HPF (0-3); Urobilinogen Normal mg/dL (Less than 2); WBC/HPF None Seen HPF (0-3)
[2024-02-12 10:20] LABS: Bacteria/HPF None Seen HPF (None Seen); Influenza A by NAA Not Detected (NotDetected); Influenza B by NAA Not Detected (NotDetected); SARS-CoV-2 NAA Rapid Test Not Detected (NotDetected)
[2024-02-12 13:52] LABS: CAUTI Indications for Culture Dysuria,urgency,freq
== END 2024-02-12 11:00 | disposition home or self-care (01) ==
LOC: CSHERS 08:09
DX: I48.91 Unspecified atrial fibrillation (principal); I11.0 Hypertensive heart disease with heart failure; I50.9 Heart failure, unspecified; R06.02 Shortness of breath; Z55.6 Problems related to health literacy
CPT/HCPCS: 71045; 80053; 81001; 83735; 83880; 84443; 84484; 85025; 85610; 85730; 93005; 96374; 96375; J1940; J3475

== ENCOUNTER 2024-06-12 17:58 | Emergency (ER) | payer OTHER ==
[~2024-06-12 17:58] MED LIST: Iopamidol 370 76% 100 ML VIAL ONE
[2024-06-12 19:11] LABS: #Basophils 0.03 10x3/uL (0.0-0.2); #Eosinophils 0.16 10x3/uL (0.0-0.5); #Monocytes 0.41 10x3/uL (0.0-1.1); #Neutrophils 2.65 10x3/uL (1.5-8.4); %Basophils 0.7 % (0.0-2.0); %Eosinophils 3.5 % (0.0-6.0); %Lymphocytes 29.3 % (18.0-47.0); %Monocytes 8.9 % (0.0-10.0); %Neutrophils 57.4 % (40.0-75.0); Hematocrit 45.6 % (38.8-50.0); Hemoglobin 15.4 g/dL (13.5-17.5); Mean Corpuscular HGB CONC 33.8 g/dL (32.0-36.0); Mean Corpuscular Hemoglobin 29.3 pg (27.0-33.0); Mean Corpuscular Volume 86.7 fL (81.2-95.1); Mean Platelet Volume 10.1 fL (7.4-10.4); Platelet Count 234 10x3/uL (150-450); RBC Distribution Width 13.3 % (11.5-14.5); Red Blood Cell (RBC) Count 5.26 10x6/uL (4.32-5.72); White Blood Cell (WBC) Count 4.6 10x3/uL (3.5-10.5)
[2024-06-12 19:25] LABS: ALT (SGPT) 23 U/L (8-55); AST (SGOT) 21 U/L (5-34); Albumin 4.2 g/dL (3.4-4.8); Alkaline Phosphatase 78 U/L (40-110); Anion Gap 16 mmol/L (10-20); BUN (Urea Nitrogen) 20 mg/dL (8.4-25.7); Bilirubin, Total 0.5 mg/dL (0.2-1.2); Calc. Creatinine Clearance 0 mL/min (70-130); Calcium 9.6 mg/dL (7.8-10.44); Carbon Dioxide 22 mmol/L (23-31); Chloride 104 mmol/L (98-107); Estimated GFR 48; Globulin 4.1 g/dL (2.4-3.5); Glucose 109 mg/dL (80-115); Potassium 3.9 mmol/L (3.5-5.1); Protein, Total 8.3 g/dL (5.8-8.1); Sodium 138 mmol/L (136-145)
[2024-06-12 19:26] LABS: Bilirubin Neg (Negative); Blood, Urine Negative (Negative); Clarity Clear (Clear); Glucose, Urine (Dipstick) Normal (Negative); Ketone, Urine Negative (Negative); Leukocyte Negative (Negative); Nitrite Negative (Negative); Protein, Urine (Dipstick) 30 mg/dl (Neg-Trace); Specific Gravity, Urine 1.005 (1.005-1.030); Urobilinogen Normal mg/dL (Less than 2)
[2024-06-12 19:33] LABS: Bacteria/HPF None Seen HPF (None Seen); CAUTI Indications for Culture Alt mental st,lethar; RBC/HPF None Seen HPF (0-3); Squamous Epithelial None Seen HPF (0-3); WBC/HPF 0-3 HPF (0-3)
[2024-06-12 19:34] LABS: Urine Culture Reflex No No
[2024-06-12 19:59] LABS: INR-International Normal Ratio 1.1; PTT 30.1 sec (22.0-33.0); Prothrombin Time 12.2 sec (9.5-12.1)
[2024-06-12] MEDS ORDERED: Meclizine HCl 25 MG TAB ONE (20:01)
[2024-06-12 20:03] LABS: Magnesium 2.1 mg/dL (1.6-2.6)
[2024-06-12 20:10] LABS: Troponin I 0.015 ng/mL (< 0.028)
== END 2024-06-12 21:56 | disposition home or self-care (01) ==
LOC: CSHERS 17:58
DX: R42 Dizziness and giddiness (principal); I11.0 Hypertensive heart disease with heart failure; I50.9 Heart failure, unspecified; I48.91 Unspecified atrial fibrillation; I25.2 Old myocardial infarction; Z55.6 Problems related to health literacy
CPT/HCPCS: 70496; 70498; 71045; 80053; 81001; 83735; 83880; 84443; 84484; 85025; 85610; 85730; 93005; 96360; Q9967

== ENCOUNTER 2024-07-20 09:38 | Emergency (ER) | payer OTHER ==
[2024-07-20 10:13] LABS: #Basophils 0.04 10x3/uL (0.0-0.2); #Eosinophils 0.23 10x3/uL (0.0-0.5); #Monocytes 0.29 10x3/uL (0.0-1.1); %Basophils 1.3 % (0.0-2.0); %Eosinophils 7.5 % (0.0-6.0); %Lymphocytes 39.3 % (18.0-47.0); %Monocytes 9.4 % (0.0-10.0); %Neutrophils 42.2 % (40.0-75.0); Hematocrit 48.7 % (38.8-50.0); Hemoglobin 16.1 g/dL (13.5-17.5); Mean Corpuscular HGB CONC 33.1 g/dL (32.0-36.0); Mean Corpuscular Hemoglobin 28.5 pg (27.0-33.0); Mean Corpuscular Volume 86.2 fL (81.2-95.1); Mean Platelet Volume 9.8 fL (7.4-10.4); Platelet Count 233 10x3/uL (150-450); RBC Distribution Width 13.1 % (11.5-14.5); Red Blood Cell (RBC) Count 5.65 10x6/uL (4.32-5.72); White Blood Cell (WBC) Count 3.1 10x3/uL (3.5-10.5)
[2024-07-20 10:31] LABS: ALT (SGPT) 17 U/L (8-55); AST (SGOT) 15 U/L (5-34); Alkaline Phosphatase 78 U/L (40-110); Anion Gap 14 mmol/L (10-20); BUN (Urea Nitrogen) 17 mg/dL (8.4-25.7); Bilirubin, Total 0.9 mg/dL (0.2-1.2); Calc. Creatinine Clearance 0 mL/min (70-130); Calcium 9.4 mg/dL (7.8-10.44); Carbon Dioxide 23 mmol/L (23-31); Chloride 105 mmol/L (98-107); Estimated GFR 48; Glucose 104 mg/dL (80-115); Potassium 3.6 mmol/L (3.5-5.1); Sodium 138 mmol/L (136-145)
== END 2024-07-20 11:18 | disposition home or self-care (01) ==
LOC: CSHERS 09:38
DX: R55 Syncope and collapse (principal); R29.700 NIHSS score 0; I13.0 Hypertensive heart and chronic kidney disease with heart failure and stage 1 through stage 4 chronic kidney disease, or unspecified chronic kidney disease; I50.9 Heart failure, unspecified; N18.9 Chronic kidney disease, unspecified; E78.5 Hyperlipidemia, unspecified; I25.2 Old myocardial infarction; I48.91 Unspecified atrial fibrillation; Z79.01 Long term (current) use of anticoagulants; Z79.899 Other long term (current) drug therapy
CPT/HCPCS: 71045; 80053; 83880; 84484; 85025; 93005

== ENCOUNTER 2024-08-18 00:05 | Emergency (ER) | payer OTHER ==
[2024-08-18 00:44] LABS: #Basophils 0.04 10x3/uL (0.0-0.2); #Eosinophils 0.24 10x3/uL (0.0-0.5); #Neutrophils 1.64 10x3/uL (1.5-8.4); %Basophils 0.8 % (0.0-2.0); %Eosinophils 4.8 % (0.0-6.0); %Lymphocytes 51.2 % (18.0-47.0); Hematocrit 48.2 % (38.8-50.0); Hemoglobin 16.7 g/dL (13.5-17.5); Mean Corpuscular HGB CONC 34.6 g/dL (32.0-36.0); Mean Corpuscular Hemoglobin 29.5 pg (27.0-33.0); Mean Corpuscular Volume 85.2 fL (81.2-95.1); Mean Platelet Volume 9.7 fL (7.4-10.4); Platelet Count 250 10x3/uL (150-450); RBC Distribution Width 13.2 % (11.5-14.5); Red Blood Cell (RBC) Count 5.66 10x6/uL (4.32-5.72); White Blood Cell (WBC) Count 4.98 10x3/uL (3.5-10.5)
[2024-08-18 01:00] LABS: ALT (SGPT) 18 U/L (Less than 45); AST (SGOT) 15 U/L (11-34); Albumin 4.4 g/dL (3.1-4.5); Alkaline Phosphatase 85 U/L (40-110); Anion Gap 15 mmol/L (10-20); BUN (Urea Nitrogen) 14 mg/dL (8.4-25.7); Bilirubin, Total 0.6 mg/dL (0.3-1.2); Calc. Creatinine Clearance 0 mL/min (70-130); Calcium 9.5 mg/dL (7.8-10.44); Carbon Dioxide 25 mmol/L (23-31); Chloride 104 mmol/L (98-107); Estimated GFR 49; Globulin 3.7 g/dL (2.4-3.5); Glucose 98 mg/dL (80-115); Potassium 3.5 mmol/L (3.5-5.1); Protein, Total 8.1 g/dL (5.8-8.1); Sodium 140 mmol/L (136-145)
[2024-08-18 01:05] LABS: Troponin I 0.021 ng/mL (< 0.028)
[2024-08-18] MEDS ORDERED: dilTIAZem 25 MG/5 ML VIAL ONE (01:33)
== END 2024-08-18 03:40 | disposition home or self-care (01) ==
LOC: CSHERS 00:05
DX: I48.91 Unspecified atrial fibrillation (principal); I11.0 Hypertensive heart disease with heart failure; I50.9 Heart failure, unspecified
CPT/HCPCS: 71045; 80053; 83880; 84484; 85025; 93005; 93010; 96374

== ENCOUNTER 2024-09-06 07:51 | Emergency (ER) | payer OTHER ==
[2024-09-06 08:29] LABS: #Basophils Less than 0.03 10x3/uL (0.0-0.2); #Eosinophils 0.04 10x3/uL (0.0-0.5); #Monocytes 0.79 10x3/uL (0.0-1.1); #Neutrophils 5.53 10x3/uL (1.5-8.4); %Basophils 0.3 % (0.0-2.0); %Eosinophils 0.5 % (0.0-6.0); %Lymphocytes 17.4 % (18.0-47.0); %Monocytes 10.2 % (0.0-10.0); %Neutrophils 71.1 % (40.0-75.0); Hematocrit 45.1 % (38.8-50.0); Hemoglobin 15.3 g/dL (13.5-17.5); Mean Corpuscular HGB CONC 33.9 g/dL (32.0-36.0); Mean Corpuscular Hemoglobin 28.6 pg (27.0-33.0); Mean Corpuscular Volume 84.3 fL (81.2-95.1); Mean Platelet Volume 10.1 fL (7.4-10.4); Platelet Count 213 10x3/uL (150-450); RBC Distribution Width 13.1 % (11.5-14.5); Red Blood Cell (RBC) Count 5.35 10x6/uL (4.32-5.72); White Blood Cell (WBC) Count 7.77 10x3/uL (3.5-10.5)
[2024-09-06 08:45] LABS: ALT (SGPT) 23 U/L (Less than 45); AST (SGOT) 19 U/L (11-34); Albumin 3.8 g/dL (3.1-4.5); Alkaline Phosphatase 84 U/L (40-110); Anion Gap 18 mmol/L (10-20); BUN (Urea Nitrogen) 17 mg/dL (8.4-25.7); Bilirubin, Total 2.4 mg/dL (0.3-1.2); Calc. Creatinine Clearance 0 mL/min (70-130); Calcium 9.1 mg/dL (7.8-10.44); Carbon Dioxide 20 mmol/L (23-31); Chloride 105 mmol/L (98-107); Estimated GFR 47; Globulin 3.4 g/dL (2.4-3.5); Glucose 124 mg/dL (80-115); Magnesium 1.7 mg/dL (1.6-2.6); Potassium 3.5 mmol/L (3.5-5.1); Protein, Total 7.2 g/dL (5.8-8.1); Sodium 139 mmol/L (136-145)
[2024-09-06 08:51] LABS: Troponin I 0.023 ng/mL (< 0.028)
[2024-09-06 10:42] LABS: Troponin I 0.022 ng/mL (< 0.028)
== END 2024-09-06 11:50 | disposition home or self-care (01) ==
LOC: CSHERS 07:51
DX: I11.0 Hypertensive heart disease with heart failure (principal); I50.9 Heart failure, unspecified; I48.91 Unspecified atrial fibrillation; E78.5 Hyperlipidemia, unspecified; Z79.899 Other long term (current) drug therapy; Z79.01 Long term (current) use of anticoagulants
CPT/HCPCS: 36415; 71045; 80053; 83735; 83880; 84484; 85025; 93005

== ENCOUNTER 2025-04-03 16:26 | Observation (INO) | payer OTHER ==
[2025-04-03 17:30] LABS: Glucose, Urine (Dipstick) Normal (Negative); Leukocyte Negative (Negative); Protein, Urine (Dipstick) 30 mg/dl (Neg-Trace); Specific Gravity, Urine 1.010 (1.005-1.030)
[2025-04-03 17:59] LABS: Bacteria/HPF None Seen HPF (None Seen); CAUTI Indications for Culture Pelvic or flank pain; RBC/HPF None Seen HPF (0-3); Urine Culture Reflex No No; WBC/HPF None Seen HPF (0-3)
[2025-04-03] MEDS ORDERED: Ondansetron PF 4 MG/2 ML Vial ONE (19:24)
[2025-04-03 20:10] LABS: #Basophils 0.04 10x3/uL (0.0-0.2); #Eosinophils 0.09 10x3/uL (0.0-0.5); #Monocytes 0.40 10x3/uL (0.0-1.1); #Neutrophils 3.41 10x3/uL (1.5-8.4); %Basophils 0.8 % (0.0-2.0); %Eosinophils 1.8 % (0.0-6.0); %Lymphocytes 22.9 % (18.0-47.0); %Monocytes 7.8 % (0.0-10.0); %Neutrophils 66.5 % (40.0-75.0); Hematocrit 44.8 % (38.8-50.0); Hemoglobin 14.9 g/dL (13.5-17.5); Mean Corpuscular Hemoglobin 28.8 pg (27.0-33.0); Mean Corpuscular Volume 86.7 fL (81.2-95.1); Platelet Count 204 10x3/uL (150-450); Red Blood Cell (RBC) Count 5.17 10x6/uL (4.32-5.72); White Blood Cell (WBC) Count 5.12 10x3/uL (3.5-10.5)
[2025-04-03 20:20] LABS: ALT (SGPT) 20 U/L (Less than 45); AST (SGOT) 22 U/L (11-34); Albumin 4.6 g/dL (3.1-4.5); Alkaline Phosphatase 82 U/L (40-110); Anion Gap 15 mmol/L (10-20); BUN (Urea Nitrogen) 20 mg/dL (8.4-25.7); Bilirubin, Total 0.9 mg/dL (0.3-1.2); Calc. Creatinine Clearance 0 mL/min (70-130); Calcium 9.4 mg/dL (7.8-10.44); Carbon Dioxide 24 mmol/L (23-31); Chloride 106 mmol/L (98-107); Globulin 3.4 g/dL (2.4-3.5); Glucose 79 mg/dL (80-115); Potassium 3.9 mmol/L (3.5-5.1); Sodium 141 mmol/L (136-145)
[2025-04-03 20:28] LABS: Troponin I 0.029 ng/mL (< 0.028)
[2025-04-03 23:18] LABS: Troponin I 0.034 ng/mL (< 0.028)
[2025-04-04] MEDS ORDERED: cloNIDine 0.1 MG TAB ONE (00:16)
[2025-04-04] MEDS ORDERED: Ondansetron PF 4 MG/2 ML Vial IVP PRN (00:33)
[2025-04-04] MEDS ORDERED: Calcium Carbonate 500 MG ChewTAB PO PRN (00:33)
[2025-04-04] MEDS ORDERED: Guaifenesin DM 100-10/5 ML UDCUP PO PRN (00:33)
[2025-04-04] MEDS ORDERED: Senokot S 8.6-50 MG TAB PO PRN (00:33)
[2025-04-04 02:43] VITALS: BMI 30.8
[2025-04-04] MEDS: Apixaban 5 MG TAB PO SCH ×2 (02:52→08:21)
[2025-04-04 04:45] LABS: Anion Gap 15 mmol/L (10-20); BUN (Urea Nitrogen) 18 mg/dL (8.4-25.7); Calc. Creatinine Clearance 73 mL/min (70-130); Calcium 8.9 mg/dL (7.8-10.44); Carbon Dioxide 24 mmol/L (23-31); Chloride 106 mmol/L (98-107); Glucose 82 mg/dL (80-115); Potassium 3.5 mmol/L (3.5-5.1); Sodium 141 mmol/L (136-145)
[2025-04-04 04:53] LABS: Troponin I 0.031 ng/mL (< 0.028)
[2025-04-04] MEDS: cloNIDine 0.1 MG TAB PO SCH (06:24)
[2025-04-04] MEDS: Carvedilol 25 MG TAB PO SCH (08:21)
[2025-04-04] MEDS: NIFEdipine XL 90 MG ER.TAB PO SCH (08:22)
[2025-04-04] MEDS: Pantoprazole 40 MG DR.TAB PO SCH (08:22)
[2025-04-04] MEDS ORDERED: CLONIDINE HCL 0.3 MG PO SCH (09:00)
[2025-04-04 14:32] VITALS: BP 112/68
[2025-04-04] MEDS: ALPRAZolam 0.25 MG TAB PO PRN (16:27)
[2025-04-04 16:45] VITALS: TEMP 98.6
== END 2025-04-04 17:41 | disposition home or self-care (01) ==
LOC: CSHERS 16:26 → CSHTELE 04-04 00:16
PROVIDERS: ADMIT Student in an Organized Health Care Education/Training Program; ATTEND Family Medicine
DX: H81.10 Benign paroxysmal vertigo, unspecified ear (principal); I16.0 Hypertensive urgency; I5A Non-ischemic myocardial injury (non-traumatic); I48.0 Paroxysmal atrial fibrillation; I13.0 Hypertensive heart and chronic kidney disease with heart failure and stage 1 through stage 4 chronic kidney disease, or unspecified chronic kidney disease; I50.30 Unspecified diastolic (congestive) heart failure; N18.31 Chronic kidney disease, stage 3a; E78.5 Hyperlipidemia, unspecified; K21.9 Gastro-esophageal reflux disease without esophagitis; G47.33 Obstructive sleep apnea (adult) (pediatric); Z98.890 Other specified postprocedural states; Z88.8 Allergy status to other drugs, medicaments and biological substances; Z88.5 Allergy status to narcotic agent; Z79.01 Long term (current) use of anticoagulants; Z79.899 Other long term (current) drug therapy
CPT/HCPCS: 36415; 36416; 71045; 80048; 80053; 81001; 83880; 84484; 85025; 93005; 94760; 96374; G0378; J2405